=== PATIENT | female | born 1970 | race Caucasian/White ===

== ENCOUNTER 2017-07-12 13:25 | Inpatient (IN) | payer MEDICARE, OTHER ==
[~2017-07-12] VITALS: Ht 157.5 cm; Wt 46.0 kg
--- NOTE | ~2017-07-12 | CON ---
[place], [place] REPORT OF CONSULTATION NAME: CHARBEL NICOLE UNIT #: [id number] ROOM: [place] [address] DOCTOR: GISELE ALDANA MD BIRTHDATE: [birth year] DOS: 07/15/2017 CHIEF COMPLAINT: "I've been so depressed." HISTORY OF PRESENT ILLNESS: This is a 47-year-old female brought to the Emergency Room via EMS after an overdose of Vicodin. The patient reports a long history of depression and most recently an increased stress level. Prior to , her fiance suddenly . This necessitated her to find a new living situation immediately. She moved in with her daughter, but things there were very much filled with discord. The patient ended up having to give away her dogs and just felt horribly depressed with poor sleep and appetite. In fact, she had not slept for days prior to this admission. During a family argument, the patient stated "you all would be better off if I were , you want me don't you" and in the midst of having a significant migraine began taking Vicodin to help her sleep and stopped the migraine ultimately overdosing on it. She still endorses increased depression right now, but is hopeful that the meds will help her feel better. I discussed with her at length about going for help and she is in agreement with this. 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 MENTAL STATUS: The patient is alert and oriented to person, place and time. Mood does seem to be depressed with anxious overtones. She endorses multiple neurovegetative symptoms. There is no hypomania or marilee. There are no auditory or visual hallucinations. No delusions, no paranoia. Memory for the most part is intact. DIAGNOSIS: Major depression, recurrent, severe. PLAN: I agree with the starting of the Remeron, not only will this rapidly aid sleep but it is a good migraine prophylaxis. I will discontinue the Lexapro due to ineffectiveness and due to the fact that it is redundant with her Remeron. I do think an inpatient stay would be warranted given the fact that she has poor coping skills and a very poor support system and is in need of some type of alternative placement. GISELE ALDANA MD CM:CONSTR:REPORT OF CONSULTATION 1115 07/15/17 1249 interface
--- NOTE | ~2017-07-12 | EKG ---
[place], [place] ELECTROCARDIOGRAM REPORT NAME: CHARBEL NICOLE UNIT #: [id number] ROOM: [place] [address] DOCTOR: INDIO AZEVEDO,PEGGY BIRTHDATE: [birth year] DOS: 07/12/2017 TIME: 1406 hours. IMPRESSION: 1. Sinus rhythm. 2. Borderline left atrial enlargement. 3. Nonspecific intraventricular conduction delay. 4. Poor R-wave progression. 5. Baseline artifacts. PEGGY BORJAS MD CM:EKGRPT:ELECTROCARDIOGRAM REPORT [id number] PEGGY BORJAS MD
--- NOTE | ~2017-07-12 | CON ---
[place], [place] REPORT OF CONSULTATION NAME: CHARBEL NICOLE UNIT #: [id number] ROOM: [place] [address] DOCTOR: YULIANA LIND MD BIRTHDATE: [birth year] DOS: CHIEF COMPLAINT: "I took overdose." HISTORY OF PRESENT ILLNESS: The patient is 47-year-old, brought to the Emergency Department via EMS for overdose. [facility], they arrived at her home where patient was found unresponsive and unconscious. She was given Narcan and then she reported that she took Vicodin after getting into argument with her daughter in an attempt to kill herself. As per daughter, they had an argument and she went up to her room and when daughter went to check on her, she was unresponsive and was not breathing. Paramedics were called and then she was given IV Narcan and later she received Narcan in the Emergency Department as well and then transferred to ICU where I saw her this morning. The patient reports that she has been in psychiatric treatment for a couple of years for depression and then recently her fiance of heart attack and that has been a loss to her, then she had to move to her daughter and had an argument with and she thought that life is not worth living and took the overdose with the intent to harm herself, though this morning she states that she is happy that she is alive and endorses neurovegetative symptoms of depression with sadness, crying spells, anhedonia, hopelessness and she is still ambivalent about her safety. PAST MEDICAL HISTORY: She had a double lung transplant 20 years ago and status post gastric bypass surgery. MENTAL STATUS EXAMINATION: The patient is still drowsy, though could hold conversation, but would doze off frequently. Mood overwhelmed ____ depressed with blunted affect. No marilee or hypomania and no overt psychosis at present and she still cannot contract for safety. PLAN: She is currently being managed at ICU. Considering her serious attempt on her life and inability to contract for safety, also considering her history of depression, she will need an inpatient facility to stabilize her on meds. She was taking Lexapro, which we are going to restart at 10 mg daily and Vistaril 25 mg p.r.n. q. 6 hours. I did sign the pink slip as well in case it is needed. YULIANA LIND MD CM:CONSTR:REPORT OF CONSULTATION 0932 07/13/17 1350 interface
--- NOTE | ~2017-07-12 | CON ---
[place], [place] REPORT OF CONSULTATION NAME: CHARBEL NICOLE UNIT #: [id number] ROOM: [place] [address] DOCTOR: GISELE ALDANA MD BIRTHDATE: [birth year] DOS: 07/17/2017 SECONDARY PSYCHIATRIC CONSULTATION CHIEF COMPLAINT: "I really think I can go home." HISTORY OF PRESENT ILLNESS: This is a 47-year-old female who was admitted after an intentional overdose of Vicodin. She reports a long history of depression with increased stress including significant housing issues and family discord. The patient was admitted to ICU following this OD attempt. When I did evaluate her, I did start her on Remeron. Since that time, she has had several doses of the Remeron and is sleeping and eating better and is feeling much better. We were trying to get her placed into a psychiatric unit; however, she is on continuous O2, making this very difficult as most psychiatric units will not take somebody medically compromised. The patient has improved sufficiently where she is reporting she is not suicidal and she is voicing positive plans for the future. She reports improved sleep and appetite, better energy and she is much more lucid and engaging. DIAGNOSIS: Major depression, recurrent. PLAN: At this point, the most psychiatric units will keep A patient anywhere from 2-5 days. She has been in the hospital around this time and has been medicated successfully. I have suggested to her she consider the [facility] As an option. The IOP should provide transportation to and from the program. We will provide her added support and help her improve coping mechanisms. They also have a physician on staff who can monitor her medication. I do not see her as acutely suicidal or lethal at this point and feel that she can safely be discharged at this point. GISELE ALDANA MD CM:CONSTR:REPORT OF CONSULTATION 1014 07/17/17 1312 interface
[~2017-07-12 13:25] MED LIST: CELLCEPT500 M1 PO; LEXAPRO20 MG PO; NORCO 325 MG-51 TAB PO; PREDNISONE10 MG PO; PROGRAF5 MG PO; ZITHROMAX250 MG PO
[2017-07-12 13:35] VITALS: BP 101/56
[2017-07-12 13:57] LABS: BASO # 0.1 10*3/uL (0.0-0.1); BASO % 0.4 % (0.0-1.0); EOS # 0.4 10*3/uL (0.0-0.4); EOS % 3.1 % (1.0-4.0); HEMATOCRIT 34.8 % (37.0-47.0); HEMOGLOBIN 9.9 g/dl (12.0-16.0); LYMPH # 1.8 10*3/uL (1.3-4.4); LYMPH % 12.6 % (27.0-41.0); MEAN CELL VOLUME 96.4 fl (81.0-99.0); MEAN CORPUSCULAR HGB 27.4 pg (27.0-31.0); MEAN CORPUSCULAR HGB CONC 28.4 g/dl (33.0-37.0); MEAN PLATELET VOLUME 10.7 fl (9.6-12.3); MONO # 0.8 10*3/uL (0.1-1.0); MONO % 5.8 % (3.0-9.0); NEUT # 10.8 10*3/uL (2.3-7.9); NEUT % 77.3 % (47.0-73.0); PLATELET COUNT AUTOMATED 176 10*3/uL (130-400); RED BLOOD COUNT 3.61 10*6/uL (4.10-5.10); RED CELL DISTRI WIDTH 14.5 % (0-14.5); WHITE BLOOD COUNT 13.9 10*3/uL (4.8-10.8)
[2017-07-12 14:08] LABS: ACT PARTIAL THROMBO TIME 23.9 SECONDS (20.8-31.5); INTERNATIONAL NORM RATIO 1.1 (2.0-3.5)
[2017-07-12 14:12] LABS: ALKALINE PHOSPHATASE 71 U/L (45-117); BUN 24 mg/dl (7-24); CHLORIDE 108 mmol/L (98-107); CREATININE 1.21 mg/dL (0.55-1.02); POTASSIUM 4.6 mmol/L (3.5-5.1); SGOT/AST 13 IU/L (3-35); SGPT/ALT 9 U/L (12-78); SODIUM 138 mmol/L (136-145); TOTAL PROTEIN 5.8 gm/dL (6.4-8.2)
[2017-07-12 14:21] LABS: ACETAMINOPHEN (TYLENOL) 269.6 ug/ml (10-30); ETHYL ALCOHOL < 3.0 mg/dl (<3)
[2017-07-12 14:37] LABS: ABG HCO3 22.9 mmol/l (22-26); ABG O2 SATURATION 96.1 % (95-97); ARTERIAL BLOOD GAS PCO2 62.4 mmHg (35-45)
[2017-07-12 14:47] LABS: ABG BASE EXCESS -5.6 mmol/L (-2.0-2.0); ARTERIAL BLOOD GAS PH 7.182 (7.35-7.45)
[2017-07-12 15:21] LABS: BILIRUBIN NEGATIVE (NEGATIVE); BLOOD NEGATIVE (NEGATIVE); CLARITY CLEAR (CLEAR); COLOR YELLOW (YELLOW); GLUCOSE 1+ (NEGATIVE); KETONE NEGATIVE (NEGATIVE); LEUKO ESTERASE NEGATIVE (NEGATIVE); NITRITE NEGATIVE (NEGATIVE); PH 5.5 (5.0-9.0); SPECIFIC GRAVITY 1.025 (1.005-1.030); UROBILINOGEN 0.2 E.U./dl (0.2-1.0)
[2017-07-12 15:30] LABS: URINE AMPHETAMINES < 1000 (1000ng/ml); URINE BARBITURATES < 200 (200ng/ml); URINE BENZODIAZEPINES > 200 (200ng/ml); URINE CANNABINOIDS (THC) < 50 (50ng/ml); URINE COCAINE < 300 (300ng/ml); URINE METHADONE < 300 (300ng/ml); URINE OPIATES > 300 (300ng/ml)
[2017-07-12 15:40] LABS: MUCOUS TRACE; RBC 0-2 rbc/hpf (0-2)
[2017-07-12 15:48] LABS: URINE PHENCYCLIDINE < 25 (25ng/ml)
[2017-07-12 15:50] VITALS: BP 125/59
[2017-07-12 16:00] VITALS: BP 107/60; BP 125/59
[2017-07-12] MEDS ORDERED: REXULTI1 MG PO (16:57)
[2017-07-12] MEDS ORDERED: PROGRAF5 MG PO ×2 (16:59→17:00)
[2017-07-12] MEDS ORDERED: NORCO 7.5-3251 EACH PO (17:00)
[2017-07-12] MEDS ORDERED: AMITRIPTYLINE10 MG PO (17:02)
[2017-07-12] MEDS ORDERED: REMERON45 M1 PO (17:03)
[2017-07-12] MEDS ORDERED: NEURONTIN300 MG PO (17:04)
[2017-07-12] MEDS ORDERED: KLONOPIN1 M1 PO (17:04)
[2017-07-12] MEDS ORDERED: PRILOSEC20 M1 PO (17:05)
[2017-07-12] MEDS ORDERED: VALIUM5 MG PO (17:06)
[2017-07-12] MEDS ORDERED: ZOFRAN ODT4 MG SL (17:07)
[2017-07-12 20:00] VITALS: BP 121/62
[2017-07-13] VITALS: BP 131/81
[2017-07-13 04:00] VITALS: BP 159/85
[2017-07-13 05:55] LABS: BASO % 0.2 % (0.0-1.0); EOS % 0.2 % (1.0-4.0); HEMATOCRIT 34.6 % (37.0-47.0); HEMOGLOBIN 9.8 g/dl (12.0-16.0); LYMPH % 12.6 % (27.0-41.0); MEAN CELL VOLUME 95.1 fl (81.0-99.0); MEAN CORPUSCULAR HGB 26.9 pg (27.0-31.0); MEAN CORPUSCULAR HGB CONC 28.3 g/dl (33.0-37.0); MONO # 0.3 10*3/uL (0.1-1.0); MONO % 3.7 % (3.0-9.0); NEUT # 6.7 10*3/uL (2.3-7.9); NEUT % 82.3 % (47.0-73.0); RED BLOOD COUNT 3.64 10*6/uL (4.10-5.10); RED CELL DISTRI WIDTH 14.3 % (0-14.5); WHITE BLOOD COUNT 8.2 10*3/uL (4.8-10.8)
[2017-07-13 06:15] LABS: ACT PARTIAL THROMBO TIME 26.7 SECONDS (20.8-31.5); INTERNATIONAL NORM RATIO 1.2 (2.0-3.5)
[2017-07-13 06:16] LABS: ALBUMIN 2.9 gm/dl (3.1-4.5); BUN 20 mg/dl (7-24); CHLORIDE 105 mmol/L (98-107); CHOLESTEROL 148 mg/dL (<200); CREATININE 0.97 mg/dL (0.55-1.02); PHOSPHOROUS 4.2 mg/dL (2.5-4.9); POTASSIUM 4.2 mmol/L (3.5-5.1); SGOT/AST 9 IU/L (3-35); SGPT/ALT 13 U/L (12-78); SODIUM 139 mmol/L (136-145); TOTAL PROTEIN 5.8 gm/dL (6.4-8.2); TRIGLYCERIDES 137 mg/dl (<150); VLDL CHOLESTEROL 27 mg/dL (6-40)
[2017-07-13 06:17] LABS: ALKALINE PHOSPHATASE 69 U/L (45-117); BILIRUBIN, DIRECT < 0.1 mg/dL (0.0-0.2); SGOT/AST 7 IU/L (3-35); SGPT/ALT 10 U/L (12-78); TOTAL PROTEIN 5.9 gm/dL (6.4-8.2)
[2017-07-13 06:23] LABS: ALKALINE PHOSPHATASE 70 U/L (45-117); HDL CHOLESTEROL 44 mg/dl (40-60); LDL CHOLESTEROL 77 mg/dL (9-159); THYROID STIM HORMONE (HS) 0.377 uIU/ml (0.358-4.75)
[2017-07-13 06:43] LABS: PLATELET COUNT AUTOMATED 122 10*3/uL (130-400)
[2017-07-13 08:00] VITALS: BP 150/70
[2017-07-13 08:24] LABS: VITAMIN D, 25-HYDROXY 18.4 ng/mL (30-100)
[2017-07-13 12:00] VITALS: BP 137/75
[2017-07-13 16:00] VITALS: BP 139/81
[2017-07-13 20:00] VITALS: BP 147/95
[2017-07-14] VITALS: BP 132/88
[2017-07-14 04:00] VITALS: BP 132/80
[2017-07-14 05:15] LABS: BASO % 0.5 % (0.0-1.0); EOS % 0.2 % (1.0-4.0); HEMATOCRIT 31.1 % (37.0-47.0); LYMPH # 1.3 10*3/uL (1.3-4.4); LYMPH % 32.8 % (27.0-41.0); MEAN CELL VOLUME 93.4 fl (81.0-99.0); MEAN CORPUSCULAR HGB CONC 28.9 g/dl (33.0-37.0); MEAN PLATELET VOLUME 11.1 fl (9.6-12.3); MONO # 0.3 10*3/uL (0.1-1.0); MONO % 6.7 % (3.0-9.0); NEUT # 2.4 10*3/uL (2.3-7.9); NEUT % 59.3 % (47.0-73.0); PLATELET COUNT AUTOMATED 112 10*3/uL (130-400); RED BLOOD COUNT 3.33 10*6/uL (4.10-5.10); RED CELL DISTRI WIDTH 14.5 % (0-14.5); WHITE BLOOD COUNT 4.1 10*3/uL (4.8-10.8)
[2017-07-14 05:26] LABS: ACT PARTIAL THROMBO TIME 25.8 SECONDS (20.8-31.5); INTERNATIONAL NORM RATIO 1.1 (2.0-3.5)
[2017-07-14 05:33] LABS: ALBUMIN 3.1 gm/dl (3.1-4.5); ALKALINE PHOSPHATASE 63 U/L (45-117); BUN 13 mg/dl (7-24); CHLORIDE 106 mmol/L (98-107); CREATININE 0.78 mg/dL (0.55-1.02); PHOSPHOROUS 2.6 mg/dL (2.5-4.9); POTASSIUM 4.3 mmol/L (3.5-5.1); SGOT/AST 4 IU/L (3-35); SGPT/ALT 9 U/L (12-78); SODIUM 141 mmol/L (136-145); TOTAL PROTEIN 5.7 gm/dL (6.4-8.2)
[2017-07-14 08:00] VITALS: BP 130/80
[2017-07-14 12:00] VITALS: BP 150/80
[2017-07-14 16:00] VITALS: BP 141/97
[2017-07-14 20:00] VITALS: BP 138/84
[2017-07-15] VITALS: BP 149/83
[2017-07-15 04:00] VITALS: BP 144/84
[2017-07-15 08:00] VITALS: BP 134/85
[2017-07-15 08:36] LABS: BASO % 0.6 % (0.0-1.0); EOS # 0.4 10*3/uL (0.0-0.4); EOS % 6.6 % (1.0-4.0); HEMATOCRIT 35.5 % (37.0-47.0); HEMOGLOBIN 10.7 g/dl (12.0-16.0); LYMPH # 1.7 10*3/uL (1.3-4.4); LYMPH % 26.1 % (27.0-41.0); MEAN CELL VOLUME 92.4 fl (81.0-99.0); MEAN CORPUSCULAR HGB 27.9 pg (27.0-31.0); MEAN CORPUSCULAR HGB CONC 30.1 g/dl (33.0-37.0); MEAN PLATELET VOLUME 11.8 fl (9.6-12.3); MONO # 0.5 10*3/uL (0.1-1.0); MONO % 7.5 % (3.0-9.0); NEUT # 3.8 10*3/uL (2.3-7.9); NEUT % 58.9 % (47.0-73.0); PLATELET COUNT AUTOMATED 127 10*3/uL (130-400); RED BLOOD COUNT 3.84 10*6/uL (4.10-5.10); RED CELL DISTRI WIDTH 14.7 % (0-14.5); WHITE BLOOD COUNT 6.5 10*3/uL (4.8-10.8)
[2017-07-15 08:53] LABS: ALBUMIN 3.1 gm/dl (3.1-4.5); ALKALINE PHOSPHATASE 65 U/L (45-117); BUN 18 mg/dl (7-24); CHLORIDE 108 mmol/L (98-107); CREATININE 1.05 mg/dL (0.55-1.02); PHOSPHOROUS 3.1 mg/dL (2.5-4.9); POTASSIUM 3.9 mmol/L (3.5-5.1); SGPT/ALT 11 U/L (12-78); SODIUM 144 mmol/L (136-145); TOTAL PROTEIN 5.9 gm/dL (6.4-8.2)
[2017-07-15 08:54] LABS: SGOT/AST < 3 IU/L (3-35)
[2017-07-15 12:00] VITALS: BP 144/88
[2017-07-15 16:00] VITALS: BP 134/60
[2017-07-15 20:00] VITALS: BP 136/86
[2017-07-16] VITALS: BP 144/78
[2017-07-16 04:00] VITALS: BP 130/80
[2017-07-16 08:00] VITALS: BP 154/90
[2017-07-16 12:00] VITALS: BP 144/93
[2017-07-16 16:00] VITALS: BP 152/94
[2017-07-16 20:00] VITALS: BP 154/92
[2017-07-17] VITALS: BP 154/92
[2017-07-17 04:00] VITALS: BP 128/85
[2017-07-17 08:00] VITALS: BP 145/79
[2017-07-17 12:00] VITALS: BP 136/91
[2017-07-17] MEDS ORDERED: VITAMIN D-32000 UNI1 PO (13:44)
[2017-07-17 16:00] VITALS: BP 124/84
[2017-07-17 20:00] VITALS: BP 129/84
[2017-07-18] VITALS: BP 132/65
[2017-07-18 06:27] LABS: BASO % 0.3 % (0.0-1.0); EOS # 0.4 10*3/uL (0.0-0.4); EOS % 5.2 % (1.0-4.0); HEMATOCRIT 32.7 % (37.0-47.0); HEMOGLOBIN 9.5 g/dl (12.0-16.0); LYMPH # 1.4 10*3/uL (1.3-4.4); LYMPH % 17.2 % (27.0-41.0); MEAN CELL VOLUME 93.2 fl (81.0-99.0); MEAN CORPUSCULAR HGB 27.1 pg (27.0-31.0); MEAN CORPUSCULAR HGB CONC 29.1 g/dl (33.0-37.0); MEAN PLATELET VOLUME 11.4 fl (9.6-12.3); MONO # 0.6 10*3/uL (0.1-1.0); MONO % 7.7 % (3.0-9.0); NEUT # 5.5 10*3/uL (2.3-7.9); NEUT % 69.2 % (47.0-73.0); PLATELET COUNT AUTOMATED 140 10*3/uL (130-400); RED BLOOD COUNT 3.51 10*6/uL (4.10-5.10); RED CELL DISTRI WIDTH 14.7 % (0-14.5); WHITE BLOOD COUNT 7.9 10*3/uL (4.8-10.8)
[2017-07-18 06:47] LABS: CREATININE 0.87 mg/dL (0.55-1.02)
[2017-07-18 08:00] VITALS: BP 144/82
[2017-07-18 12:00] VITALS: BP 122/80
== END 2017-07-18 16:12 | disposition home or self-care (01) | DRG 917 ==
LOC: ED 13:25 → ICCU 14:08 → 4E 14:08 → EDHOLD 14:08 → ICCU 14:16 → 4E 07-17 17:56
PROVIDERS: Emergency Medicine; Internal Medicine; Internal Medicine Nephrology
PROC: 5A09357 Assistance with Respiratory Ventilation, Less than 24 Consecutive Hours, Continuous Positive Airway Pressure (ICD-10-PCS; principal; 2017-07-12)
DX: T40.602A Poisoning by unspecified narcotics, intentional self-harm, initial encounter (principal); J96.02 Acute respiratory failure with hypercapnia; G93.41 Metabolic encephalopathy; I47.2 Ventricular tachycardia; D84.9 Immunodeficiency, unspecified; E44.0 Moderate protein-calorie malnutrition; Z94.2 Lung transplant status; F33.2 Major depressive disorder, recurrent severe without psychotic features; N18.3 Chronic kidney disease, stage 3 (moderate); R65.10 Systemic inflammatory response syndrome (SIRS) of non-infectious origin without acute organ dysfunction; R45.851 Suicidal ideations; Z68.1 Body mass index [BMI] 19.9 or less, adult; D69.6 Thrombocytopenia, unspecified; E87.8 Other disorders of electrolyte and fluid balance, not elsewhere classified; E11.65 Type 2 diabetes mellitus with hyperglycemia; E83.42 Hypomagnesemia; E11.22 Type 2 diabetes mellitus with diabetic chronic kidney disease; T39.1X2A Poisoning by 4-Aminophenol derivatives, intentional self-harm, initial encounter; F41.9 Anxiety disorder, unspecified; D64.9 Anemia, unspecified; Z86.69 Personal history of other diseases of the nervous system and sense organs; Z90.49 Acquired absence of other specified parts of digestive tract; Z88.2 Allergy status to sulfonamides; Z79.899 Other long term (current) drug therapy; Z98.84 Bariatric surgery status; Z82.3 Family history of stroke; Z82.49 Family history of ischemic heart disease and other diseases of the circulatory system; Y92.89 Other specified places as the place of occurrence of the external cause; Z88.5 Allergy status to narcotic agent

== ENCOUNTER 2017-09-25 06:01 | Emergency (ER) | payer MEDICARE, OTHER ==
[~2017-09-25] VITALS: Ht 154.9 cm; Wt 40.8 kg
[~2017-09-25 06:01] MED LIST changes: +AMITRIPTYLINE10 MG PO; +KLONOPIN1 M1 PO; +NEURONTIN300 MG PO; +NORCO 7.5-3251 EACH PO; +PRILOSEC20 M1 PO; +REMERON45 M1 PO; +REXULTI1 MG PO; +VALIUM5 MG PO; +VITAMIN D-32000 UNI1 PO; +ZOFRAN ODT4 MG SL
[2017-09-25 06:37] LABS: BASO % 0.3 % (0.0-1.0); EOS # 0.3 10*3/uL (0.0-0.4); EOS % 2.6 % (1.0-4.0); HEMATOCRIT 35.7 % (37.0-47.0); HEMOGLOBIN 10.4 g/dl (12.0-16.0); LYMPH # 1.1 10*3/uL (1.3-4.4); LYMPH % 9.9 % (27.0-41.0); MEAN CELL VOLUME 96.2 fl (81.0-99.0); MEAN CORPUSCULAR HGB CONC 29.1 g/dl (33.0-37.0); MEAN PLATELET VOLUME 9.8 fl (9.6-12.3); MONO # 0.7 10*3/uL (0.1-1.0); MONO % 6.4 % (3.0-9.0); NEUT # 8.7 10*3/uL (2.3-7.9); NEUT % 80.3 % (47.0-73.0); PLATELET COUNT AUTOMATED 172 10*3/uL (130-400); RED BLOOD COUNT 3.71 10*6/uL (4.10-5.10); RED CELL DISTRI WIDTH 15.8 % (0-14.5); WHITE BLOOD COUNT 10.8 10*3/uL (4.8-10.8)
[2017-09-25 06:53] LABS: ALKALINE PHOSPHATASE 103 U/L (45-117); BUN 18 mg/dl (7-24); CHLORIDE 106 mmol/L (98-107); CREATININE 0.87 mg/dL (0.55-1.02); SGOT/AST 6 IU/L (3-35); SGPT/ALT 9 U/L (12-78); SODIUM 141 mmol/L (136-145); TOTAL PROTEIN 6.6 gm/dL (6.4-8.2)
[2017-09-25 06:55] LABS: TROPONIN I < 0.015 ng/ml (<0.045)
[2017-09-25 07:08] LABS: ACT PARTIAL THROMBO TIME 24.8 SECONDS (20.8-31.5); INTERNATIONAL NORM RATIO 0.9 (2.0-3.5)
== END 2017-09-25 09:13 | disposition short-term general hospital (02) ==
LOC: ED 06:01
PROVIDERS: Student in an Organized Health Care Education/Training Program
DX: E87.70 Fluid overload, unspecified (principal); N18.3 Chronic kidney disease, stage 3 (moderate); E11.9 Type 2 diabetes mellitus without complications; Z94.2 Lung transplant status; Z88.2 Allergy status to sulfonamides; Z88.6 Allergy status to analgesic agent; Z79.899 Other long term (current) drug therapy

== ENCOUNTER 2017-11-03 00:24 | Inpatient (IN) | payer MEDICARE, OTHER ==
[~2017-11-03] VITALS: Ht 157.4 cm; Wt 49.5 kg
[2017-11-03] VITALS (8 sets, daily range): BP systolic 108–163; BP diastolic 74–88
--- NOTE | ~2017-11-03 | CON ---
[place], [place] REPORT OF CONSULTATION NAME: CHARBEL NICOLE UNIT #: [id number] ROOM: [place] [address] DOCTOR: MARIAMA BURTON MD BIRTHDATE: [birth year] DOS: 11/03/2017 PULMONARY CONSULTATION EVALUATION AND MANAGEMENT CONSULTATION REQUESTED BY: Hospitalist Service. REASON FOR CONSULTATION: Change in mental status. The patient in the Intensive Care Unit. HISTORY OF PRESENT ILLNESS: This is a 47-year-old white female patient who has been noted history of bilateral lung transplant for this patient at the age of, I believe 16-20 years. The lung transplantation done for the medical management of primary pulmonary hypertension, successfully. The patient has been noted immunosuppressive therapy. She presented to the Emergency Room. The patient was brought by the ambulance. The patient has been reported increased confusional status at home. The patient has been noted not acting right ankle not remember or recall any event. She has been assessed in emergency room. The patient was admitted to the hospital for further medical management. She has been noted awake and alert this morning. She has arterial blood gases done for the patient, which shows hypercarbia with a decreased pH. She was ordered BiPAP. The patient to be used, but it was not done as the patient was noted improvement in the respiratory symptom progressively. The arterial blood gas, which were repeated later for the patient was also assessed. She does note symptoms of hemoptysis. REVIEW OF SYSTEMS: CONSTITUTIONAL: Fatigue, reported as symptoms, fever or chills. EYES: Denies any burning, redness, or tenderness. EARS, NOSE, THROAT SYMPTOMS: Denies sore throat, hoarseness, otalgia, postnasal drainage or epistaxis. CARDIOVASCULAR: No angina pain, edema or pain in lower extremity. GASTROINTESTINAL: Dysphagia, nausea, vomiting, diarrhea, abdominal pain, hematemesis, melena, or hematochezia. SKIN: Denies any abnormal lesions or rashes. GENITOURINARY SYMPTOMS: Dysuria, suprapubic pain, hematuria or flank pain. CENTRAL NERVOUS SYSTEM: No dizziness, headache, diplopia, syncopal episode, tingling sensation this time. Change in mental status for the patient, which has been noted previously was resolved. There was no history of past seizures. MUSCULOSKELETAL: No acute joint pain, redness or tenderness of any joints. Remaining systems were reviewed. They were noted all negative. PAST MEDICAL HISTORY: 1. Noted with history of bilateral lung transplant that was done in 1995. The patient with primary pulmonary hypertension. 2. History of general anxiety and depression. 3. Chronic immunosuppression for this patient for the post-lung transplant status. 4. History of anxiety and depression. 5. Use of dapsone for this patient taken by the patient as 50 mg 3 times a [place], [place] REPORT OF CONSULTATION NAME: CHARBEL NICOLE UNIT #: [id number] ROOM: [place] [address] DOCTOR: MERYL HERNANDEZ MD,MARIAMA BIRTHDATE: [birth year] week. PAST SURGICAL HISTORY: 1. Appendectomy. 2. Cholecystectomy. 3. Gastric bypass. 4. Lung transplant, 1995 double lung transplant, [facility]. SOCIAL HISTORY: The patient lives at home. Does not have any history of alcohol use, illicit, or tobacco use. FAMILY HISTORY: The patient reported for CVA and hypertension. HOME MEDICATIONS: 1. Noted, use of prednisone 10 mg every other day. 2. Diazepam 5 mg p.o. t.i.d. 3. CellCept 500 mg p.o. b.i.d. 4. Lexapro 20 mg daily. 5. ____ 3 mg daily, recently changed from 2 mg to 3 mg. 6. Prograf 4 mg in the day and 3 mg at bedtime. 7. Amitriptyline 10 mg at bedtime. 8. Remeron 40 mg daily. 9. Gabapentin 300 mg daily. 10. Klonopin 1 mg p.o. b.i.d. 11. Prilosec 20 mg p.o. b.i.d. 12. Zofran p.r.n. 13. Wellbutrin SR 150 mg b.i.d. 14. Zanaflex 4 mg p.o. t.i.d. DRUG ALLERGY HISTORY: ALLERGIC TO 1. SULFA DRUGS. 2. MORPHINE. PHYSICAL EXAMINATION: GENERAL: The patient is a 47 years of white female currently noted to be awake and alert without any acute distress this morning noted fully awake, alert, oriented this morning of assessment after hospitalization in the Intensive Care Unit assessment. VITAL SIGNS: Height of 5 feet 2 inches, weight of 109 pounds, BMI 19.9. Normal temperature, respiratory rate 18-23, heart rate 83-68, blood pressure 160-88, 144/88. Pulse oxygen saturation on 2 liters is 95% saturation. HEENT: Head was atraumatic. Eyes nonicterus. NECK: Supple. CARDIOVASCULAR: S1, S2 audible. LUNGS:. The patient was noted without any wheezing or crackles. Lungs noted to be clear bilaterally. ABDOMEN: Soft, nontender. EXTREMITIES: The patient was noted without any acute edema. Chronic loss of muscle mass. SKIN: ____ visible skin, no lesions or rashes. [place], [place] REPORT OF CONSULTATION NAME: CHARBEL NICOLE UNIT #: [id number] ROOM: [place] [address] DOCTOR: MERYL HERNANDEZ MD,MARIAMA BIRTHDATE: [birth year] MUSCULOSKELETAL SYMPTOM: Without any acute deformities. CENTRAL NERVOUS SYSTEM: Cranial nerves 2-12 intact. No focal neurologic deficit. LABORATORY DATA: CT scan of the head, which was done on admission this morning was noted, no acute abnormal finding. CBC: Hemoglobin 8.1 and hematocrit 28.8, platelet count was normal. Lactic acid 1.0. PT/PTT of patient that was done on this admission was normal. Salicylate level less than 1.07. The CMP of the patient this morning, BUN 25, creatinine 1.20, glucose 196. Total protein 6.3. Arterial blood gas pH of 7.32, pCO2 of 55, pO2 61. The arterial blood gas of the patient that was done this morning on 3 liters, pH of 7.35, pCO2 of 52, and pO2 109. BMP this morning repeated again normal BUN and creatinine. Glucose 151. Urine drug screen was also done for this patient with four illicit drugs was noted all negative testing. IMPRESSION: 1. The patient was noted with mental status changes. The patient with hypercarbia, most likely related to the hypoventilation for this patient as a result of polypharmacy medication, which was taken for the anxiety and depression. The patient was on many medications including some duplicated medication noted as use of benzodiazepines as Valium and Klonopin as well would be the likely cause of the current change in mental status. 2. Chronic hypercarbia, history of lung transplant without any known other pulmonary disease. 3. History of primary pulmonary hypertension, which has been treated for lung transplant, as per patient, 1995. 4. Chronic immunosuppressive therapy without any evidence of infection or sepsis at this time. 5. Mild acute kidney injury secondary to most likely a decreased oral intake, intravascular volume depletion, resolved. PLAN OF TREATMENT: At this time, the patient was noted with saturation of the hypoxia and hypoxemia, which are noted relative remission, pO2 of 61.9 noted at that time with 2 liter nasal cannula, currently oxygen saturation noted normal as the pO2 improve her on 3 L of 109. At this time, the monitoring of the hypercarbia could be done as an outpatient. The patient was advised to be followed up by her transplant doctor for further discussion. Avoid the duplication of the medication, also minimize the medication use for anxiety and depression to prevent the change in mental status in future. The chest x-ray was also done, which was reviewed does not show any acute cardiopulmonary disease. Increased pulmonary venous congestion marking was noted. Any pulmonary problem, patient need to be addressed by the transplant physician at [facility]. From the pulmonary standpoint, whenever desired for the patient, the patient is stable for other medical condition including psychiatric assessment and evaluation. She could be considered for home discharge afterwards as necessary. Thanks for allowing me to participate in care of this patient. [place], [place] REPORT OF CONSULTATION NAME: CHARBEL NICOLE UNIT #: [id number] ROOM: [place] [address] DOCTOR: MARIAMA BURTON MD BIRTHDATE: [birth year] MARIAMA SHETH MD CM:CONSTR:REPORT OF CONSULTATION 1353 11/04/17 0304 interface
--- NOTE | ~2017-11-03 | CON ---
[place], [place] REPORT OF CONSULTATION NAME: CHARBEL NICOLE UNIT #: [id number] ROOM: [place] [address] DOCTOR: MARIAMA BURTON MD BIRTHDATE: [birth year] DOS: PULMONARY CONSULTATION, EVALUATION, AND MANAGEMENT CONSULTATION REQUESTED BY: Hospitalist services. REASON FOR CONSULTATION: 1. Assess the patient for any respiratory problem as well. 2. Mental status changes. HISTORY OF PRESENT ILLNESS: A 47-year-old female patient, who has been admitted to the hospital 2 days ago for short term. The patient presented to the hospital, noted with hypercarbic respiratory failure, change in mental status and confusional status. The patient has been noted with gradual resolution of the symptoms progressively and was discharged home. She was noted with multiple medications used for the anxiety and depression as well. She was noted stable at the time of the discharge without any ongoing acute symptoms. The patient was seen, but the patient returned back to the Emergency Room and readmitted to the hospital on 11/04/2017, presented to the Emergency Room on later part of the evening of 11/03/2017. The patient brought to the hospital by his daughter. The patient has been noted with changes in the mental status. The patient has been noted with confusional status, was not noted oriented to the time and place. She has been currently admitted to the hospital again for assessment of current symptoms. This morning when the patient was seen, she was appear to be awake, alert, and oriented to the time and place this morning on 11/05/2017 at the time of the assessment. She denies any symptoms of coughing or sputum expectoration. Denies symptoms of acute shortness of breath. Denies symptoms of hemoptysis. REVIEW OF SYSTEMS: CONSTITUTIONAL: Denies symptoms of fever or chills. Denies any fatigue or tiredness. EYES: Denies any burning, redness, tenderness, or diplopia. EARS, NOSE, AND THROAT SYMPTOMS: Denies sore throat, hoarseness, otalgia, postnasal drainage, or sinus pain. CARDIOVASCULAR: Denies anginal pain, edema, pain of the lower extremities, or palpitation symptoms. GASTROINTESTINAL: Denies dysphagia, nausea, vomiting, diarrhea, abdominal pain, hematemesis, melena, or hematochezia. SKIN: Denies any history of abnormal lesions or rashes. MUSCULOSKELETAL: Denies any acute joint pain, redness, tenderness, swelling, or deformities. CENTRAL NERVOUS SYSTEM: The patient was not noted any symptoms of seizure or tingling sensation of the extremities. Remaining systems were reviewed and they were noted all negative. PAST MEDICAL HISTORY: Please refer to my consultation, which was done on 11/03/2017. Past medical history, past surgical history, social history, and family history are noted, reviewed, and unchanged since that consultation. [place], [place] REPORT OF CONSULTATION NAME: CHARBEL NCIOLE UNIT #: [id number] ROOM: [place] [address] DOCTOR: MERYL HERNANDEZ MD,MARIAMA BIRTHDATE: [birth year] HOME MEDICATIONS: Reported on admission was noted with the use of 1. Ventolin HFA. 2. Vitamin C. 3. Atovaquone 750 mg suspension every day for pneumocystis prophylaxis, chronic immunosuppression. 4. Vitamin D. 5. Klonopin. 6. Lexapro. 7. CellCept 500 mg p.o. b.i.d. 8. Prednisone 10 mg daily. 9. Omeprazole 20 mg daily. 10. ____ 3 mg p.o. daily. 11. Prograf 5 mg p.o. b.i.d. 12. Zofran p.r.n. use. DRUG ALLERGIES: Noted allergies: 1. MORPHINE. 2. SULFA DRUGS. PHYSICAL EXAMINATION: GENERAL: This is a 47-year-old female, who has been currently resting comfortably, sitting on the bed without any acute distress at this time of assessment this morning. Height was noted as 5 feet 1 inch, weight of 102 pounds, and BMI 19.3. VITAL SIGNS: Temperature was noted normal since admission, respiratory rate recorded as 17-20, heart rate 105-91, blood pressure 150/90-140/90, pulse oxygen saturation on 2 liters nasal cannula was noted as 97% saturation. The patient was placed on the BiPAP previously, which has not been used in the last 24 hours, saturating ____ on 25% oxygen. HEENT: Examination shows head was atraumatic. Eye nonicterus. NECK: Supple. Oral mucosa moist. CARDIOVASCULAR: S1, S2 is audible. LUNGS: The patient was noted without any wheezing or crackles. Itcv-ip-bepzdocu decreased breath sounds noted in the lungs bilaterally. ABDOMEN: Soft, nontender. Bowel sounds present. EXTREMITIES: Do not show any edema, clubbing, or cyanosis. VISIBLE SKIN: No lesions or rashes. MUSCULOSKELETAL SYMPTOMS: Without any acute deformities. CENTRAL NERVOUS SYSTEM: Cranial nerves 2-12 intact. No focal deficits. LABORATORY DATA: Blood culture on previous admission of 11/03/2017 showed no bacterial growth. The BMP of the patient on 11/05/2017 noted BUN 24 and creatinine 1.24. This morning labs, CBC of the patient, WBC count 4.6, hemoglobin 7.8, hematocrit 27.1, and platelet count 153,000. The PT and PTT are noted yesterday as normal. CBC yesterday, WBC count 4.3, hemoglobin 8.3, hematocrit 29.4, and platelet count 154,000. CMP of the patient, BUN of 20, creatinine 1.09, and glucose 122 on admission. The LFTs were normal except albumin 3.0. The arterial blood gas on 25% oxygen with the BiPAP, pH 7.40, pCO2 of 45, pO2 70. BNP for the patient was noted as mildly elevated at 1,031 with [place], [place] REPORT OF CONSULTATION NAME: CHARBEL NICOLE UNIT #: [id number] ROOM: [place] [address] DOCTOR: CORA BURTON MDM BIRTHDATE: [birth year] normal troponin. Urine drug screen was noted negative. CT scan of the head was repeated on 11/04/2017 was noted without any acute intracranial abnormality. The chest x-ray does not show any acute abnormalities, mild hyperinflation. CT scan of the chest was done without contrast that was personally reviewed shows evidence of bronchiectasis, which are present in the mid and lower portions of the lung bilaterally without any discrete pulmonary nodules and infiltration. IMPRESSION: 1. The patient who has been currently admitted to the hospital with mental status changes still noted, multiple medications for the general anxiety and depression also noted, chronic immunosuppression, bilateral lung transplant that occurred for this patient in 1995 in [facility]. 2. No history of past tobacco use. Current change in mental status, etiology remains unclear to me. Any occult infection, sepsis cannot be excluded completely. At this time, the patient does not show any signs of active at least bacterial infection, leukopenia resulting either immunosuppression, viral etiology to be considered. PLAN OF MANAGEMENT: The patient will be recommended about the psychiatric evaluation to adjust the medications, minimize the psychiatric medications that potentially could resulting in mental status changes. She will be ordered the viral assessment with the nasopharyngeal washing for the influenza infection as well as other respiratory virus panel available in this hospital. Monitor respiratory symptoms closely at the present time. Bronchodilators p.r.n. use. Other supportive therapy, plan of management to be continued. Usual treatment. Monitor any other culture results as well. Obtain the drug level of the CellCept as well as Prograf to document adequacy of the immunosuppression for post-lung transplant immunosuppression use. The patient will be strongly recommended about assessment in the [facility] for the development of current bronchiectasis in the transplanted lung that was noted. Thanks for allowing me to participate in the care of this patient. MARIAMA SHETH MD CM:CONSTR:REPORT OF CONSULTATION 1416 11/06/17 0348 interface
--- NOTE | ~2017-11-03 | EKG ---
[place], [place] ELECTROCARDIOGRAM REPORT NAME: CHARBEL NICOLE UNIT #: [id number] ROOM: [place] [address] DOCTOR: MERYL HERNANDEZ MD,MARIAMA BIRTHDATE: [birth year] DOS: 11/03/2017 TIME: 1:00 a.m. INTERPRETATION: Normal sinus rhythm noted. Heart rate 61 beats per minute. Poor R-wave progression was noted. Rule out acute myocardial injury. MARIAMA SHETH MD CM:EKGRPT:ELECTROCARDIOGRAM REPORT 1526 1624 MARIAMA HERNANDEZ MD
[~2017-11-03 00:24] MED LIST changes: -AMITRIPTYLINE10 MG PO; +AMITRIPTYLINE50 MG PO
[2017-11-03 01:19] LABS: BASO % 0.4 % (0.0-1.0); EOS # 0.1 10*3/uL (0.0-0.4); EOS % 2.9 % (1.0-4.0); HEMATOCRIT 28.8 % (37.0-47.0); HEMOGLOBIN 8.1 g/dl (12.0-16.0); LYMPH # 1.2 10*3/uL (1.3-4.4); LYMPH % 24.2 % (27.0-41.0); MEAN CELL VOLUME 90.6 fl (81.0-99.0); MEAN CORPUSCULAR HGB 25.5 pg (27.0-31.0); MEAN CORPUSCULAR HGB CONC 28.1 g/dl (33.0-37.0); MEAN PLATELET VOLUME 10.8 fl (9.6-12.3); MONO # 0.2 10*3/uL (0.1-1.0); MONO % 4.8 % (3.0-9.0); NEUT # 3.3 10*3/uL (2.3-7.9); NEUT % 67.5 % (47.0-73.0); PLATELET COUNT AUTOMATED 151 10*3/uL (130-400); RED BLOOD COUNT 3.18 10*6/uL (4.10-5.10); RED CELL DISTRI WIDTH 15.5 % (0-14.5); WHITE BLOOD COUNT 4.8 10*3/uL (4.8-10.8)
[2017-11-03 01:29] LABS: ACT PARTIAL THROMBO TIME 25.1 SECONDS (20.8-31.5); INTERNATIONAL NORM RATIO 1.1 (2.0-3.5)
[2017-11-03 01:36] LABS: ACETAMINOPHEN (TYLENOL) < 2.0 ug/ml (10-30); ALBUMIN 3.1 gm/dl (3.1-4.5); ALKALINE PHOSPHATASE 105 U/L (45-117); BUN 25 mg/dl (7-24); CHLORIDE 104 mmol/L (98-107); ETHYL ALCOHOL < 3.0 mg/dl (<3); LIPASE 51 U/L (73-393); POTASSIUM 4.3 mmol/L (3.5-5.1); SGOT/AST 11 IU/L (3-35); SGPT/ALT 16 U/L (12-78); SODIUM 140 mmol/L (136-145); TOTAL PROTEIN 6.3 gm/dL (6.4-8.2); TROPONIN I < 0.015 ng/ml (<0.045)
[2017-11-03 01:54] LABS: ABG HCO3 28.1 mmol/l (22-26); ABG O2 SATURATION 90.9 % (95-97); ARTERIAL BLOOD GAS PCO2 55.2 mmHg (35-45); ARTERIAL BLOOD GAS PH 7.325 (7.35-7.45); ARTERIAL BLOOD GAS PO2 61.9 mmHg (80-90)
[2017-11-03 02:06] LABS: BILIRUBIN NEGATIVE (NEGATIVE); BLOOD NEGATIVE (NEGATIVE); CLARITY CLEAR (CLEAR); COLOR YELLOW (YELLOW); GLUCOSE NEGATIVE (NEGATIVE); KETONE NEGATIVE (NEGATIVE); LEUKO ESTERASE NEGATIVE (NEGATIVE); NITRITE NEGATIVE (NEGATIVE); SPECIFIC GRAVITY 1.025 (1.005-1.030); UROBILINOGEN 0.2 E.U./dl (0.2-1.0)
[2017-11-03 02:12] LABS: WBC 0-2 wbc/hpf (0-5)
[2017-11-03 02:14] LABS: URINE AMPHETAMINES < 1000 (1000ng/ml); URINE BARBITURATES < 200 (200ng/ml); URINE BENZODIAZEPINES < 200 (200ng/ml); URINE CANNABINOIDS (THC) < 50 (50ng/ml); URINE COCAINE < 300 (300ng/ml); URINE METHADONE < 300 (300ng/ml); URINE OPIATES < 300 (300ng/ml); URINE PHENCYCLIDINE < 25 (25ng/ml)
[2017-11-03] MEDS ORDERED: WELLBUTRIN SR150 MG PO (04:44)
[2017-11-03] MEDS ORDERED: ZANAFLEX4 MG PO (04:48)
[2017-11-03 05:17] LABS: BUN 22 mg/dl (7-24); CHLORIDE 107 mmol/L (98-107); CHOLESTEROL 142 mg/dL (<200); CREATININE 0.98 mg/dL (0.55-1.02); HDL CHOLESTEROL 44 mg/dl (40-60); LDL CHOLESTEROL 74 mg/dL (9-159); PHOSPHOROUS 2.7 mg/dL (2.5-4.9); POTASSIUM 4.1 mmol/L (3.5-5.1); SODIUM 144 mmol/L (136-145); TRIGLYCERIDES 118 mg/dl (<150); VLDL CHOLESTEROL 24 mg/dL (6-40)
[2017-11-03 06:28] LABS: BASO % 0.5 % (0.0-1.0); EOS # 0.2 10*3/uL (0.0-0.4); EOS % 4.6 % (1.0-4.0); HEMOGLOBIN 8.2 g/dl (12.0-16.0); LYMPH % 26.1 % (27.0-41.0); MEAN CELL VOLUME 90.6 fl (81.0-99.0); MEAN CORPUSCULAR HGB 25.6 pg (27.0-31.0); MEAN CORPUSCULAR HGB CONC 28.3 g/dl (33.0-37.0); MEAN PLATELET VOLUME 11.6 fl (9.6-12.3); MONO # 0.3 10*3/uL (0.1-1.0); MONO % 6.9 % (3.0-9.0); NEUT # 2.4 10*3/uL (2.3-7.9); NEUT % 61.6 % (47.0-73.0); PLATELET COUNT AUTOMATED 144 10*3/uL (130-400); RED CELL DISTRI WIDTH 15.5 % (0-14.5); WHITE BLOOD COUNT 3.9 10*3/uL (4.8-10.8)
[2017-11-03 07:15] LABS: ABG BASE EXCESS 2.6 mmol/L (-2.0-2.0); ABG HCO3 28.5 mmol/l (22-26); ABG O2 SATURATION 97.9 % (95-97); ARTERIAL BLOOD GAS PCO2 52.6 mmHg (35-45); ARTERIAL BLOOD GAS PH 7.351 (7.35-7.45)
[2017-11-03 07:23] LABS: VITAMIN D, 25-HYDROXY 14.9 ng/mL (30-100)
[2017-11-03] MEDS ORDERED: PREDNISONE5 MG PO (09:30)
[2017-11-03] MEDS ORDERED: ATOVAQUONE750 MG/5 M PO (09:31)
[2017-11-03] MEDS ORDERED: VITAMIN C500 M4 PO (09:33)
[2017-11-03] MEDS ORDERED: PROVENTIL HFA6.7 GM IH (09:38)
[2017-11-03] MEDS ORDERED: VITAMIN D-32000 UNIT PO (16:37)
[2017-11-04] MEDS ORDERED: 'zithromax250 MG PO (12:55)
== END 2017-11-03 19:12 | disposition home or self-care (01) | DRG 189 ==
LOC: ED 00:24 → EDHOLD 02:38 → ICCU 02:42
PROVIDERS: Emergency Medicine Emergency Medical Services; Internal Medicine; Internal Medicine Critical Care Medicine
PROC: 5A09357 Assistance with Respiratory Ventilation, Less than 24 Consecutive Hours, Continuous Positive Airway Pressure (ICD-10-PCS; principal; 2017-11-03)
DX: J96.22 Acute and chronic respiratory failure with hypercapnia (principal); N17.0 Acute kidney failure with tubular necrosis; G93.41 Metabolic encephalopathy; E87.4 Mixed disorder of acid-base balance; E44.0 Moderate protein-calorie malnutrition; Z94.2 Lung transplant status; R45.851 Suicidal ideations; I27.0 Primary pulmonary hypertension; E11.22 Type 2 diabetes mellitus with diabetic chronic kidney disease; N18.3 Chronic kidney disease, stage 3 (moderate); D72.810 Lymphocytopenia; F32.9 Major depressive disorder, single episode, unspecified; D72.819 Decreased white blood cell count, unspecified; R80.9 Proteinuria, unspecified; E11.65 Type 2 diabetes mellitus with hyperglycemia; D64.9 Anemia, unspecified; E55.9 Vitamin D deficiency, unspecified; F41.1 Generalized anxiety disorder; Z90.49 Acquired absence of other specified parts of digestive tract; Z82.3 Family history of stroke; Z82.49 Family history of ischemic heart disease and other diseases of the circulatory system; Z88.5 Allergy status to narcotic agent; Z88.2 Allergy status to sulfonamides; Z79.899 Other long term (current) drug therapy; Z68.25 Body mass index [BMI] 25.0-25.9, adult

== ENCOUNTER 2017-11-03 23:34 | Inpatient (IN) | payer MEDICARE, OTHER ==
[~2017-11-03] VITALS: Ht 154.9 cm; Wt 47.4 kg
--- NOTE | ~2017-11-03 | CON ---
[place], [place] REPORT OF CONSULTATION NAME: CHARBEL NICOLE UNIT #: [id number] ROOM: 515 DOCTOR: GISELE ALDANA MD BIRTHDATE: [birth year] DOS: 11/05/2017 CHIEF COMPLAINT: "I am discharged, I am going home today." HISTORY OF PRESENT ILLNESS: This is a 47-year-old white female who was initially admitted through the emergency room at [facility] due to chronic respiratory failure with acute exacerbation as well as altered mental status. The patient had been admitted due to extreme lethargy as well as significant confusion. The patient does have a lengthy history of depression and a long history of severe medical problems that includes a bilateral lung transplant. The patient's psychiatric history includes chronic depression and anxiety with multiple suicide attempts. The patient subsequently upon admission to the medical floor had several of her psychotropics discontinued that included Elavil, Neurontin, and gabapentin. Subsequently, her mental status has cleared and she is to return home later today. MENTAL STATUS: This afternoon, she is alert and oriented with time gaps. Mood does seem to be bright. The only symptom she endorses is chronic poor sleep with difficulty falling asleep and sleep continuity disorder. She denies feeling anergia or anhedonia. Denies depression. She denies overriding anxiety. There is no hypomania, marilee or psychosis. Memory has some gaps especially for short term events. DIAGNOSES: Major depression, recurrent; personality disorder, not otherwise specified. PLAN: At this point, I see no further workup that needs to be required or any inpatient intervention that is required. I would agree with discharge at this point and outpatient followup as needed. GISELE ALDANA MD CM:CONSTR:REPORT OF CONSULTATION 1201 11/05/17 1334 interface
[~2017-11-03 23:34] MED LIST changes: +ATOVAQUONE750 MG/5 M PO; +PREDNISONE5 MG PO; +PROVENTIL HFA6.7 GM IH; +VITAMIN C500 M4 PO; +VITAMIN D-32000 UNIT PO; +WELLBUTRIN SR150 MG PO; +ZANAFLEX4 MG PO
[2017-11-04] VITALS (12 sets, daily range): BP systolic 120–156; BP diastolic 66–96
[2017-11-04 00:06] LABS: ABG BASE EXCESS 0.3 mmol/L (-2.0-2.0); ABG HCO3 25.3 mmol/l (22-26); ARTERIAL BLOOD GAS PCO2 45.3 mmHg (35-45); ARTERIAL BLOOD GAS PH 7.364 (7.35-7.45); ARTERIAL BLOOD GAS PO2 77.8 mmHg (80-90)
[2017-11-04 00:14] LABS: BASO % 0.3 % (0.0-1.0); HEMATOCRIT 29.6 % (37.0-47.0); HEMOGLOBIN 8.6 g/dl (12.0-16.0); LYMPH # 0.4 10*3/uL (1.3-4.4); LYMPH % 8.8 % (27.0-41.0); MEAN CELL VOLUME 88.9 fl (81.0-99.0); MEAN CORPUSCULAR HGB 25.8 pg (27.0-31.0); MEAN CORPUSCULAR HGB CONC 29.1 g/dl (33.0-37.0); MEAN PLATELET VOLUME 10.9 fl (9.6-12.3); MONO # 0.1 10*3/uL (0.1-1.0); NEUT # 3.5 10*3/uL (2.3-7.9); NEUT % 87.4 % (47.0-73.0); PLATELET COUNT AUTOMATED 147 10*3/uL (130-400); RED BLOOD COUNT 3.33 10*6/uL (4.10-5.10); RED CELL DISTRI WIDTH 15.9 % (0-14.5)
[2017-11-04 00:23] LABS: ACT PARTIAL THROMBO TIME 24.6 SECONDS (20.8-31.5)
[2017-11-04 00:27] LABS: ALBUMIN 3.6 gm/dl (3.1-4.5); ALKALINE PHOSPHATASE 109 U/L (45-117); BUN 21 mg/dl (7-24); CHLORIDE 101 mmol/L (98-107); CREATININE 1.25 mg/dL (0.55-1.02); POTASSIUM 4.6 mmol/L (3.5-5.1); SGOT/AST 13 IU/L (3-35); SGPT/ALT 17 U/L (12-78); SODIUM 136 mmol/L (136-145); TOTAL PROTEIN 6.9 gm/dL (6.4-8.2)
[2017-11-04 00:29] LABS: ACETAMINOPHEN (TYLENOL) < 2.0 ug/ml (10-30); ETHYL ALCOHOL < 3.0 mg/dl (<3); TROPONIN I < 0.015 ng/ml (<0.045)
[2017-11-04 02:22] LABS: BILIRUBIN NEGATIVE (NEGATIVE); BLOOD NEGATIVE (NEGATIVE); CLARITY CLEAR (CLEAR); COLOR YELLOW (YELLOW); GLUCOSE TRACE (NEGATIVE); KETONE NEGATIVE (NEGATIVE); LEUKO ESTERASE 1+ (NEGATIVE); NITRITE NEGATIVE (NEGATIVE); PH 5.5 (5.0-9.0); SPECIFIC GRAVITY <= 1.005 (1.005-1.030); UROBILINOGEN 0.2 E.U./dl (0.2-1.0)
[2017-11-04 02:30] LABS: URINE AMPHETAMINES < 1000 (1000ng/ml); URINE BARBITURATES < 200 (200ng/ml); URINE BENZODIAZEPINES < 200 (200ng/ml); URINE CANNABINOIDS (THC) < 50 (50ng/ml); URINE COCAINE < 300 (300ng/ml); URINE METHADONE < 300 (300ng/ml); URINE OPIATES < 300 (300ng/ml); URINE PHENCYCLIDINE < 25 (25ng/ml)
[2017-11-04 03:16] LABS: TROPONIN I < 0.015 ng/ml (<0.045)
[2017-11-04 05:36] LABS: ABG BASE EXCESS 3.6 mmol/L (-2.0-2.0); ABG HCO3 28.2 mmol/l (22-26); ABG O2 SATURATION 94.5 % (95-97); ARTERIAL BLOOD GAS PCO2 45.8 mmHg (35-45); ARTERIAL BLOOD GAS PH 7.406 (7.35-7.45); ARTERIAL BLOOD GAS PO2 70.6 mmHg (80-90)
[2017-11-04 06:01] LABS: ALBUMIN 3.3 gm/dl (3.1-4.5); ALKALINE PHOSPHATASE 89 U/L (45-117); BUN 20 mg/dl (7-24); CHLORIDE 103 mmol/L (98-107); CREATININE 1.09 mg/dL (0.55-1.02); PHOSPHOROUS 3.4 mg/dL (2.5-4.9); SGOT/AST 8 IU/L (3-35); SGPT/ALT 12 U/L (12-78); SODIUM 140 mmol/L (136-145)
[2017-11-04 06:02] LABS: BASO % 0.5 % (0.0-1.0); HEMATOCRIT 29.4 % (37.0-47.0); HEMOGLOBIN 8.4 g/dl (12.0-16.0); LYMPH % 23.3 % (27.0-41.0); MEAN CELL VOLUME 88.8 fl (81.0-99.0); MEAN CORPUSCULAR HGB 25.4 pg (27.0-31.0); MEAN CORPUSCULAR HGB CONC 28.6 g/dl (33.0-37.0); MEAN PLATELET VOLUME 11.3 fl (9.6-12.3); MONO # 0.3 10*3/uL (0.1-1.0); MONO % 6.2 % (3.0-9.0); NEUT % 69.3 % (47.0-73.0); PLATELET COUNT AUTOMATED 154 10*3/uL (130-400); RED BLOOD COUNT 3.31 10*6/uL (4.10-5.10); RED CELL DISTRI WIDTH 15.9 % (0-14.5); WHITE BLOOD COUNT 4.3 10*3/uL (4.8-10.8)
[2017-11-04 06:15] LABS: ACT PARTIAL THROMBO TIME 24.2 SECONDS (20.8-31.5); INTERNATIONAL NORM RATIO 1.1 (2.0-3.5)
[2017-11-04] MEDS ORDERED: 'zithromax250 MG PO (12:55)
[2017-11-05] VITALS: BP 137/76
[2017-11-05 06:39] LABS: CREATININE 1.24 mg/dL (0.55-1.02); POTASSIUM 4.3 mmol/L (3.5-5.1)
[2017-11-05 06:47] LABS: BASO % 0.2 % (0.0-1.0); EOS % 0.7 % (1.0-4.0); HEMATOCRIT 27.1 % (37.0-47.0); HEMOGLOBIN 7.8 g/dl (12.0-16.0); LYMPH # 1.3 10*3/uL (1.3-4.4); LYMPH % 27.8 % (27.0-41.0); MEAN CELL VOLUME 89.1 fl (81.0-99.0); MEAN CORPUSCULAR HGB 25.7 pg (27.0-31.0); MEAN CORPUSCULAR HGB CONC 28.8 g/dl (33.0-37.0); MEAN PLATELET VOLUME 11.4 fl (9.6-12.3); MONO # 0.3 10*3/uL (0.1-1.0); MONO % 6.9 % (3.0-9.0); PLATELET COUNT AUTOMATED 153 10*3/uL (130-400); RED BLOOD COUNT 3.04 10*6/uL (4.10-5.10); RED CELL DISTRI WIDTH 16.4 % (0-14.5); WHITE BLOOD COUNT 4.6 10*3/uL (4.8-10.8)
[2017-11-05 08:17] VITALS: BP 142/88
[2017-11-05 11:55] VITALS: BP 150/90
== END 2017-11-05 14:20 | disposition home or self-care (01) | DRG 917 ==
LOC: ED 23:34 → EDHOLD 11-04 02:16 → 5E 11-04 02:16
PROVIDERS: Internal Medicine; Student in an Organized Health Care Education/Training Program
PROC: 5A09357 Assistance with Respiratory Ventilation, Less than 24 Consecutive Hours, Continuous Positive Airway Pressure (ICD-10-PCS; principal; 2017-11-04)
DX: T50.994A Poisoning by other drugs, medicaments and biological substances, undetermined, initial encounter (principal); G93.41 Metabolic encephalopathy; N17.0 Acute kidney failure with tubular necrosis; J96.22 Acute and chronic respiratory failure with hypercapnia; D84.9 Immunodeficiency, unspecified; Z94.2 Lung transplant status; J44.1 Chronic obstructive pulmonary disease with (acute) exacerbation; E87.2 Acidosis; R45.851 Suicidal ideations; F33.9 Major depressive disorder, recurrent, unspecified; R79.89 Other specified abnormal findings of blood chemistry; R81 Glycosuria; K44.9 Diaphragmatic hernia without obstruction or gangrene; F41.9 Anxiety disorder, unspecified; E11.65 Type 2 diabetes mellitus with hyperglycemia; G43.909 Migraine, unspecified, not intractable, without status migrainosus; D64.9 Anemia, unspecified; E55.9 Vitamin D deficiency, unspecified; F60.9 Personality disorder, unspecified; Z79.52 Long term (current) use of systemic steroids; Z90.49 Acquired absence of other specified parts of digestive tract; Z98.84 Bariatric surgery status; Z82.3 Family history of stroke; Z82.49 Family history of ischemic heart disease and other diseases of the circulatory system; Z88.2 Allergy status to sulfonamides; Z88.6 Allergy status to analgesic agent; Z79.899 Other long term (current) drug therapy; Y92.89 Other specified places as the place of occurrence of the external cause

== ENCOUNTER 2017-12-29 13:31 | Inpatient (IN) | payer MEDICARE, OTHER ==
[~2017-12-29] VITALS: Ht 154.9 cm; Wt 44.6 kg
--- NOTE | ~2017-12-29 | CON ---
[place], [place] REPORT OF CONSULTATION NAME: CHARBEL NICOLE UNIT #: [id number] ROOM: 408 DOCTOR: DIONI LEVINE ED.D (SELIN) BIRTHDATE: [birth year] DOS: 01/05/2018 HISTORY OF PRESENT ILLNESS: The patient is a 47-year-old female referred by the hospitalist for competency evaluation. At the present time, this patient is on the fourth floor at [facility] She states she is single and she has one daughter. She apparently lives with her daughter. She has been on disability for many years due to bilateral lung transplant. Her family physician is Dr. Marks in [place], [place]. PAST MEDICAL HISTORY: Pertinent for bilateral transplant of the lungs in 1995 at the [facility], generalized anxiety disorder, major depressive disorder, chronic respiratory failure, gastric bypass, cholecystectomy. MEDICATIONS: Include Solu-Medrol, folic acid, vitamin D, Lexapro, Lovenox, omeprazole, insulin, DuoNeb, gabapentin, and Ativan. This patient denies any substance abuse issues whatsoever. She was awake, alert and oriented in all three spheres. She admits to being depressed, but denies any suicidal ideation or plan. She is concerned that her daughter has been taking her medications and this has been reported to Adult Protective Services here in [facility] according to case management services. According to staff, there are no further pending investigations, but Adult Services will continue to follow with this patient once she is discharged home. She is clearly competent to make informed healthcare decisions and the purpose of this referral was to determine her competency. She is awake, alert and oriented. She has no difficulty whatsoever with communications or cognitive skills. Again, she does report depression. DIAGNOSES: Major depressive disorder -- recurrent. RECOMMENDATIONS: In my opinion, this patient is competent to make informed healthcare decisions. Thank you very much for this consult. DIONI LEVINE ED.D CM:CONSTR:REPORT OF CONSULTATION 1731 01/06/18 0133 interface
--- NOTE | ~2017-12-29 | PR ---
[place], [place] PROGRESS NOTE NAME: CHARBEL NICOLE UNIT #: [id number] ROOM: 408 DOCTOR: MERYL HERNANDEZ MD,MARIAMA BIRTHDATE: [birth year] DOS: 01/04/2018 PULMONARY PROGRESS NOTE SUBJECTIVE: She is comfortably resting on the bed at this time, without any acute distress, coughing, sputum expectoration, or chest pain. OBJECTIVE: VITAL SIGNS: Normal temperature, respiratory rate 20, heart rate 75, blood pressure 126/70, pulse ox saturation on 3 liters cannula was 98% saturation. HEENT: Head was atraumatic. Eyes nonicterus. NECK: Supple. CARDIOVASCULAR: S1, S2 audible. LUNGS: Noted without any wheezing or crackles at the present time. ABDOMEN: Soft, nontender. Bowel sounds present. EXTREMITIES: Noted without any acute edema. IMPRESSION: 1. The patient has been currently noted with resolution of acute exacerbation of bronchiectasis. 2. History of bilateral lung transplant with chronic bronchiectasis as well. PLAN OF MANAGEMENT: No changes in the plan of care for the patient. Continue current therapy plan of management. Discharge planning was noted in progress. No further change in treatment at this time will be necessary. MARIAMA SHETH MD CM:PNTRANS [id number] MARIAMA HERNANDEZ MD 01/04/18 1533 interface
--- NOTE | ~2017-12-29 | PR ---
[place], [place] PROGRESS NOTE NAME: CHARBEL NICOLE UNIT #: [id number] ROOM: 408 DOCTOR: MERYL HERNANDEZ MD,MARIAMA BIRTHDATE: [birth year] DOS: 01/05/2018 PULMONARY PROGRESS NOTE SUBJECTIVE: The patient noted comfortable at this time, resting on the bed, has not been reporting any symptoms of chest pain, minimal cough was noted without any sputum expectoration and symptoms of abdominal pain. OBJECTIVE: VITAL SIGNS: For the patient which was recorded shows the temperature noted as normal. The respiratory recorded 18, heart rate 77, blood pressure 145/82. Pulse ox saturation on 3 liters nasal cannula 97% saturation at rest noted. HEENT: Examination shows head was atraumatic. Eyes nonicterus. NECK: Supple. CARDIOVASCULAR: S1, S2 is audible. LUNGS: The patient was noted without any wheezing, no crackles. ABDOMEN: Soft, nontender. EXTREMITIES: Without any acute edema. IMPRESSION: 1. History of bilateral lung transplantation for the patient was noted 20 years ago with current bronchiectasis with acute exacerbation, resolved. 2. Debility. 3. Some social issues. PLAN OF MANAGEMENT: The patient was awaiting for placement in the nursing facility. In the meantime, no other change in treatment needs to be done. Continue bronchodilators and other symptomatic management. Usual care, other supportive therapy, plan of management and care. MARIAMA SHETH MD CM:PNTRANS [id number] MARIAMA HERNANDEZ MD 01/05/18 2256 interface
--- NOTE | ~2017-12-29 | PR ---
[place], [place] PROGRESS NOTE NAME: CHARBEL NICOLE UNIT #: [id number] ROOM: 408 DOCTOR: MERYL HERNANDEZ MD,MARIAMA BIRTHDATE: [birth year] DOS: 01/02/2018 SUBJECTIVE: She has been noted comfortable at this time, resting in the bed without any distress, coughing, sputum expectoration, chest pain or hemoptysis. OBJECTIVE: VITAL SIGNS: For the patient, which are recorded showed the temperature noted normal, respiratory rate 16, heart rate 66, blood pressure 127/71. Pulse ox saturation on 3 liters nasal cannula 100% saturation. HEENT: Examination shows head was atraumatic. Eyes nonicterus. NECK: Supple. CARDIOVASCULAR: S1, S2 is audible. LUNGS: The patient was noted without any wheeze or crackle at the present time. ABDOMEN: Soft, nontender. EXTREMITIES: Without acute edema. LABORATORY DATA: IgE level as well as IgG and subclasses were all noted normal. IMPRESSION: 1. The patient with bronchiectasis, acute exacerbation, responding to current treatment. 2. Hyperglycemia, improved significantly after the reduction of corticosteroids to be discontinued in the next couple of days. PLAN OF MANAGEMENT: Discharge planning will be started for the patient whenever desired from the pulmonary standpoint upon stability of the medical conditions. No further assessment of the patient's bronchiectasis will be done. MARIAMA SHETH MD CM:PNTRANS [id number] MARIAMA HERNANDEZ MD 01/02/18 1534 interface
--- NOTE | ~2017-12-29 | PR ---
[place], [place] PROGRESS NOTE NAME: CHARBEL NICOLE UNIT #: [id number] ROOM: 408 DOCTOR: MERYL HERNANDEZ MD,MARIAMA BIRTHDATE: [birth year] DOS: 01/06/2018 SUBJECTIVE: She has been noted comfortable at this time, still awaiting for the patient for discharge planning. The patient stated that she might be discharged home today with her daughter. Not reported any symptoms of coughing, sputum expectoration, chest pain, wheezing, fever or chills. OBJECTIVE: VITAL SIGNS: Normal temperature, respiratory rate 18, heart rate 71, blood pressure 133/73 and pulse ox saturation on 3 liters nasal cannula 99% saturation. HEENT: Examination shows head was atraumatic. Eyes nonicterus. NECK: Supple. CARDIOVASCULAR: S1, S2 is audible. LUNGS: The patient was noted without any wheezing or crackles at the present time. ABDOMEN: Soft, nontender. EXTREMITIES: Without acute edema. LABORATORY DATA: CBC of the patient's hemoglobin 9.1, remaining CBC was normal. Creatinine was noted normal today. IMPRESSION: The patient with resolution of acute bronchiectasis with history of lung transplant bilaterally over 20 years ago, primary pulmonary hypertension. PLAN OF MANAGEMENT: No changes in plan of care for the patient pulmonary standpoint. Discharge planning has already been made for this patient. MARIAMA SHETH MD CM:PNTRANS [id number] MARIAMA HERNANDEZ MD 01/14/18 0810 interface
--- NOTE | ~2017-12-29 | PR ---
[place], [place] PROGRESS NOTE NAME: CHARBEL NICOLE UNIT #: [id number] ROOM: 408 DOCTOR: MARIAMA BURTON MD BIRTHDATE: [birth year] DOS: 01/03/2018 PULMONARY PROGRESS NOTE SUBJECTIVE: She was noted comfortable at this time, resting in the bed. Denies symptoms of chest pain, coughing, sputum expectoration, or abdominal pain. Denies symptoms of nausea or vomiting. OBJECTIVE: VITAL SIGNS: Normal temperature, respiratory rate 20, heart rate 76, blood pressure 125/72. Pulse oxygen saturation 3 liters canula noted as 98% saturation. HEENT: Head was atraumatic. Eyes nonicterus. NECK: Supple. CARDIOVASCULAR: S1, S2 is audible. LUNGS: The patient was noted without any wheezing or crackles. The lung were noted clear bilaterally. ABDOMEN: Soft, nontender. EXTREMITIES: Without any acute edema. LABORATORY DATA: BMP: BUN 30, creatinine was normal. CBC: Normal WBC count, hemoglobin 8.9. The platelets are noted mildly decreased as 94,000. IMPRESSION: 1. The patient with resolving acute exacerbation of bronchiectasis. 2. Thrombocytopenia, which has been noted stable at this time, the etiology unclear, may be related to the medication used by the patient is the likely cause. 3. History of bilateral lung transplant with chronic immunosuppression. PLAN OF MANAGEMENT: No changes from the pulmonary standpoint. Discharge planning for the patient remains in progress and being considered for possibility of placement in the supervised nursing facility. Continue in the meantime other supportive therapy, plan of management and care. [place], [place] PROGRESS NOTE NAME: CHARBEL NICOLE UNIT #: [id number] ROOM: 408 DOCTOR: MARIAMA BURTON MD BIRTHDATE: [birth year] MARIAMA SHETH MD CM:PNTRANS [id number] MARIAMA HERNANDEZ MD 01/04/18 0026 interface
--- NOTE | ~2017-12-29 | PR ---
[place], [place] PROGRESS NOTE NAME: CHARBEL NICOLE UNIT #: [id number] ROOM: 408 DOCTOR: MERYL HERNANDEZ MD,MARIAMA BIRTHDATE: [birth year] DOS: 12/31/2017 SUBJECTIVE: She has been noted comfortable at this time, resting on the bed. She has not been noted symptoms of chest pain or abdominal pain. There were no symptoms of coughing or sputum expectoration reported. OBJECTIVE: VITAL SIGNS: For the patient which are recorded showed normal temperature, respiratory rate 18, heart rate 77, blood pressure 120/72. Pulse ox saturation on 3 liters nasal cannula was 97% saturation. HEENT: Examination shows head was atraumatic. Eye nonicterus. NECK: Supple. CARDIOVASCULAR: S1, S2 audible. LUNGS: The patient was noted without any wheeze or crackles at the present time. ABDOMEN: Soft, nontender. Bowel sounds present. EXTREMITIES: Without any acute edema. LABORATORY DATA: CBC today: WBC count 7.4, hemoglobin 26.7. IMPRESSION: 1. Bronchiectasis with possibility of acute exacerbation. 2. Severe hyperglycemia, improving with corticosteroids. 3. Chronic bronchiectasis. 4. History of bilateral lung transplant. PLAN OF MANAGEMENT: Decrease the Solu-Medrol dose further to 20 mg daily. Continue antibiotic. She was planned for blood transfusion because of the anemia ordered by the primary care attending. In the meantime, continue the therapy, plan of management care. Additional treatment changes to be done based on the progression of illness. MARIAMA SHETH MD CM:PNTRANS [id number] MARIAMA HERNANDEZ MD 01/14/18 0809 interface
--- NOTE | ~2017-12-29 | PR ---
[place], [place] PROGRESS NOTE NAME: CHARBEL NICOLE UNIT #: [id number] ROOM: 408 DOCTOR: MERYL HERNANDEZ MD,MARIAMA BIRTHDATE: [birth year] DOS: 01/01/2018 SUBJECTIVE: She has been noted comfortable at this time, resting in the bed. Denies any acute shortness of breath, coughing, chest pain or sputum expectoration. Hyperglycemia for the patient has improved with reduction of corticosteroids. OBJECTIVE: VITAL SIGNS: For the patient, which have been recorded shows temperature noted as normal, respiratory rate 16, heart rate 66, and blood pressure 127/69. The pulse oxygen saturation noted on 3 liters nasal cannula 94% saturation. HEENT: Head was atraumatic. Eyes nonicterus. NECK: Supple. CARDIOVASCULAR: S1, S2 audible. LUNGS: Clear. ABDOMEN: Soft, nontender. Bowel sounds present. EXTREMITIES: Without any acute edema. LABORATORY DATA: BMP: BUN 33, creatinine 1.20. CBC of the patient this morning, hemoglobin 8.9. IMPRESSION: 1. The patient bronchiectasis with acute exacerbation. Shortness of breath has been improving. 2. History of bilateral lung transplant. PLAN OF MANAGEMENT: No changes from the Pulmonary standpoint at this time. Continue current other treatment plan of management managing her diabetes, uncontrolled hyperglycemia and other treatments. MARIAMA SHETH MD CM:PNTRANS [id number] MARIAMA HERNANDEZ MD 01/01/18 1456 interface
--- NOTE | ~2017-12-29 | CON ---
[place], [place] REPORT OF CONSULTATION [id number] UNIT #: [id number] ROOM: 408 DOCTOR: MARIAMA BURTON MD BIRTHDATE: [birth year] DOS: 12/30/2017 PULMONARY CONSULTATION, EVALUATION, AND MANAGEMENT CONSULTATION REQUESTED BY: Hospitalist services. REASON FOR CONSULTATION: To assess the patient's symptoms of shortness of breath and others. HISTORY OF PRESENT ILLNESS: This is a 47-year-old white female with known history of bilateral lung transplantation done at [facility] about 21 years ago for the medical problem of pulmonary hypertension. The patient has been admitted to the hospital in 10/2017 twice, noted with multiple medication use for the generalized anxiety disorder and depression. Medications has been adjusted and she was discharged home subsequently successfully on 10/26/2017, asymptomatic. The patient denies any symptoms of chest pain or cough at this time. She presented to the hospital experiencing gradual increased shortness of breath, which has been reported in the past couple of weeks with worsening. The patient denies any symptoms of coughing, chest pain, sputum expectoration, fever, or chills. Denies symptoms of hemoptysis. The patient stated that she has been recently taking increase steroids to help gain weight as the patient has been noted with gradual weight loss. REVIEW OF SYSTEMS: CONSTITUTIONAL SYMPTOMS: Fatigue and tiredness reported. Denies any symptoms of fever or chills. EYES: Denies any burning, redness, or tenderness. EARS, NOSE, AND THROAT SYMPTOMS: Denies sore throat, hoarseness, otalgia, postnasal drainage, or epistaxis. CARDIOVASCULAR SYSTEM: Denies anginal pain, edema, or pain of lower extremity. GASTROINTESTINAL SYMPTOMS: Denies dysphagia, nausea, vomiting, diarrhea, abdominal pain, hematemesis, melena, or hematochezia with history of chronic weight loss reported by the patient. GENITOURINARY SYMPTOMS: Denies dysuria, suprapubic pain, or hematuria. MUSCULOSKELETAL SYMPTOMS: The patient did not report any symptoms of pain in any joints, redness, or tenderness. SKIN: Denies abnormal lesions or rashes. CENTRAL NERVOUS SYSTEM: General weakness and fatigue was reported. Remaining systems were reviewed with the patient and they were noted all negative. PAST MEDICAL HISTORY: Noted as: 1. History of bilateral lung transplant for pulmonary hypertension management in 1995 in [facility]. 2. Generalized anxiety disorder and depression. 3. Chronic immunosuppression posttransplant. 4. Bronchiectasis, which has been noted in the lower lung mostly asymptomatic after the lung transplant. 5. Weight loss was also reported. [place], [place] REPORT OF CONSULTATION NAME: CHARBEL NICOLE UNIT #: [id number] ROOM: 408 DOCTOR: MARIAMA BURTON MD BIRTHDATE: [birth year] PAST SURGICAL HISTORY: 1. Appendectomy. 2. Cholecystectomy. 3. Gastric bypass grafting. 4. Bilateral lung transplant in 1995 in [facility] for primary pulmonary hypertension. 5. Chronic respiratory failure, use of oxygen 3 liters nasal cannula. SOCIAL HISTORY: The patient is single, has one child, and lives at home by herself. She denies history of alcohol use, tobacco, or any illicit drugs. FAMILY HISTORY: Reported for CVA and essential hypertension. MEDICATIONS: Current medications administered noted use of: 1. Solu-Medrol 40 mg b.i.d. 2. Folic acid 1 mg daily. 3. Vitamin D 2000 international units daily. 4. Vitamin C 500 mg daily. 5. Lexapro 20 mg daily. 6. Lovenox 30 mg subcutaneous daily, DVT prophylaxis. 7. Sliding scale insulin coverage. 8. Omeprazole 20 mg daily. 9. Tacrolimus 4 mg p.o. b.i.d. 10. Mycophenolate mofetil 500 mg p.o. b.i.d. 11. DuoNeb q.4 hours. 12. Lorazepam 1 mg p.o. b.i.d. p.r.n. for generalized anxiety. 13. Zithromax and Rocephin. DRUG ALLERGY HISTORY: THE PATIENT REPORTED ALLERGY TO: 1. SULFA DRUGS. 2. MORPHINE. PHYSICAL EXAMINATION: GENERAL: This is a 47-year-old white female who has been noted currently awake and alert without any acute distress at the time of the assessment. Height was noted as 5 feet 1 inch and weight of 98 pounds. The patient's weight in 10/2017 was recorded as 109 pounds at that time. VITAL SIGNS: The vital signs for the patient recorded shows the temperature noted normal since admission, respiratory rate 18-25, heart rate of 89-102, and blood pressure 117/82-139/81. Pulse oxygen saturation recorded as 100% on 3 liters nasal cannula. HEENT: Examination noted head was atraumatic. Eyes nonicterus. NECK: Supple. CARDIOVASCULAR: S1, S2 is audible. LUNGS: The patient was noted with [id number] decreased breath sounds without any active wheezing or crackles heard. ABDOMEN: Soft, flat, and nontender. Bowel sounds present. EXTREMITIES: Without any acute edema. Some loss of muscle mass was noted. CENTRAL NERVOUS SYSTEM: Cranial nerves 2-12 intact. No focal deficit. VISIBLE SKIN: No lesions or rashes. [place], [place] REPORT OF CONSULTATION NAME: CHARBEL NICOLE UNIT #: [id number] ROOM: [facility] DOCTOR: MERYL HERNANDEZ MD,MARIAMA BIRTHDATE: [birth year] LABORATORY DATA: Lactic acid noted 1.4 on admission of 12/29/2017. CBC yesterday on admission, WBC count normal hemoglobin 10, hematocrit 35.0, and platelet count normal. The PT and PTT noted as normal. CMP of 12/29/2017 was noted as glucose 286, BUN 21, and creatinine 1.63. CMP of the patient this morning, glucose 526, BUN 31, creatinine 2.07, and sodium 131. CBC this morning, WBC count 4.6, hemoglobin 8.8, hematocrit 27.9, and platelet count 109,000. DIAGNOSTIC DATA: Chest x-ray of the patient that was done, 2-view, does not show any acute pulmonary infiltration. The CT scan of the chest that was completed this morning was reviewed was noted without any acute pulmonary infiltration or other abnormalities. Evidence of stable cylindrical bronchiectasis noted in the lower lungs. IMPRESSION: 1. The patient who has been admitted to the hospital with current symptoms of shortness of breath may be related to the exacerbation of pulmonary disease with bronchiectasis. Bronchoscopy was noted chronic long-term. 2. The patient with evidence of severe hyperglycemia resulting from the use of the corticosteroids as well. 3. Pancytopenia was also noted on this admission as well, most likely related to the current medication. 4. Chronic immunosuppressive therapy for the lung transplant. 5. Evidence of acute injury was also noted with significant elevation in creatinine either the medication-induced as the patient taking tacrolimus or intravascular volume depletion combination factors. The creatinine in 10/2017 was noted as 1.20. PLAN OF MANAGEMENT: Decrease the Solu-Medrol dose to only 40 mg daily for aggressive medical and severe hyperglycemia, which is uncontrolled. Continue current antibiotic. No treatment changes noted unless on the patient would be noted any culture, which prove the changes in the antibiotics at that time. Supportive therapy, plan of management, and care. The lab testing was ordered for the patient for the tacrolimus as well. Consider obtaining consultation from the Nephrology services as well. Monitoring of the respiratory status will be done closely otherwise at this time. The pancytopenia will be monitored. Order the IgE and IgG subclasses for current assessment of bronchiectasis. Other supportive therapy, plan of management, and other care plan. Usual treatment. Supportive care and plan of therapy. Continue oxygen supplementation. Maintain the pulse ox saturation 90% or greater for the chronic hypoxic respiratory failure. Thanks for allowing me to participate in the care of this patient. [place], [place] REPORT OF CONSULTATION NAME: COREYCHARBEL Vee UNIT #: [id number] ROOM: [facility] DOCTOR: MARIAMA BURTON MD BIRTHDATE: [birth year] MARIAMA SHETH MD CM:CONSTR:REPORT OF CONSULTATION 1457 12/31/17 0019 interface
--- NOTE | ~2017-12-29 | CON ---
[place], [place] REPORT OF CONSULTATION NAME: CHARBEL NICOLE UNIT #: [id number] ROOM: 408 DOCTOR: INDIO AZEVEDOBEHZADIza BIRTHDATE: [birth year] DOS: 12/30/2017 REASON FOR CONSULTATION: Chest pain. HISTORY OF PRESENT ILLNESS: The patient is a 47-year-old patient with history of chronic respiratory failure, history of double lung transplant about 21 years ago due to primary pulmonary hypertension, on home oxygen, was admitted for shortness of breath and chest pain. She noted to have some progressive shortness of breath and some dizziness. In the Emergency Room, she mentioned that she had some sharp pain at the left chest near the lateral aspect of the 12th rib. This is like sharp pain with no radiation, lasts for few seconds and cardiology is consulted for further recommendations. She had a stress test a year ago, results not available. She had an echo in October, which showed normal LV function, mild tricuspid regurgitation with indeterminate diastolic function. Her main complaint is progressive shortness of breath, but no edema, no PND, no orthopnea. No palpitation or dizziness. No syncope. No nausea or vomiting. No neurologic symptoms, no visual symptoms. No genitourinary symptoms. Her only complaint is intermittent, sharp pain near the left 12th rib, mostly resting pain and relieved by itself and is reproducible with palpitation. There is no fever, no chills. REVIEW OF SYSTEMS: Review of the 10 system negative except as mentioned above. PAST MEDICAL HISTORY: 1. Hypertension. 2. Chronic respiratory failure. 3. COPD. 4. Diabetes type 2. 5. Vitamin D deficiency. 6. Chronic anemia. 7. Anxiety. PAST SURGICAL HISTORY: 1. History of double lung transplant about 21 years ago. 2. History of gastric bypass. 3. Cholecystectomy. 4. Appendicectomy. SOCIAL HISTORY: The patient does not smoke or drink, does not use illicit drugs. FAMILY HISTORY: Nil contributory in father and mother except history of hypertension, strokes. ALLERGIES: Reviewed. HOME MEDICATIONS: Reviewed. PHYSICAL EXAMINATION: VITAL SIGNS: Blood pressure 145/76, pulse 99, respiration is 18, weight 44.6 [place], [place] REPORT OF CONSULTATION NAME: CHARBEL NICOLE UNIT #: [id number] ROOM: 408 DOCTOR: INDIO AZEVEDO,PEGGY BIRTHDATE: [birth year] kilos with a BMI 18.6. GENERAL: Alert, comfortable, in no acute distress. HEENT: Pupils are unequal, no jaundice. Tongue was moist and pharynx clear. NECK: Supple, no distended neck veins. No carotid bruit. CHEST: Symmetrical. There is mild tenderness of the left lateral chest wall near the twelfth rib area. HEART: Regular rhythm, no S3. Grade 1/6 systolic murmur at the right sternal border. No palpable thrills. ABDOMEN: Benign, nontender. Bowel sounds normal. EXTREMITIES: Showed no edema. Distal pulses palpable. SKIN: Warm and dry. No cyanosis, no clubbing. NEUROLOGIC: The patient is alert, oriented. No focal neurologic deficit. PSYCHIATRIC: The patient is alert with good mood and affect. GENITOURINARY: Deferred. RECTAL: Deferred. MUSCULOSKELETAL: No joint tenderness or swelling. REVIEW OF THE DIAGNOSTIC TESTS: EKG showed sinus rhythm with a possible old anteroseptal infarction. Her labs reviewed. IMAGING STUDIES: Reviewed. The pertinent labs include hemoglobin 8, creatinine 2.0, platelets are 109,000, vitamin D 14.1, albumin 2.8. A 2D echo from 11/05/2017 reviewed. IMPRESSIONS: 1. Chest pain, atypical. EKG showed no acute ischemic changes, the patient had a stress test about a year ago, results not available. She does have recurrent chest pain, then I would recommend Lexiscan stress test. 2. Chronic respiratory failure, on home oxygen. 3. Abnormal EKG with possible old anteroseptal infarction. 4. Chronic anemia. Monitor her hemoglobin and hematocrit. 5. Acute renal failure. The patient is on IV fluids. Monitor her renal function. 6. Chronic thrombocytopenia. 7. History of double lung transplant. 8. Vitamin D deficiency. RECOMMENDATIONS: She appears to be stable and stable from the cardiac standpoint, blood pressure and heart rates are stable. Cardiology will sign off and please call us back if needed. She can follow up with [facility] if she desires after her discharge in 2-4 weeks. [place], [place] REPORT OF CONSULTATION NAME: CHARBEL NICOLE UNIT #: [id number] ROOM: 408 DOCTOR: INDIO AZEVEDO,PEGGY BIRTHDATE: [birth year] PEGGY BORJAS MD CM:CONSTR:REPORT OF CONSULTATION 1245 12/31/17 0211 interface
[~2017-12-29 13:31] MED LIST changes: +'zithromax250 MG PO
[2017-12-29 13:37] VITALS: BP 117/82
[2017-12-29 14:41] LABS: BASO % 0.6 % (0.0-1.0); EOS # 0.1 10*3/uL (0.0-0.4); EOS % 1.8 % (1.0-4.0); LYMPH # 0.7 10*3/uL (1.3-4.4); LYMPH % 9.2 % (27.0-41.0); MEAN CELL VOLUME 89.3 fl (81.0-99.0); MEAN CORPUSCULAR HGB 25.5 pg (27.0-31.0); MEAN CORPUSCULAR HGB CONC 28.6 g/dl (33.0-37.0); MEAN PLATELET VOLUME 10.4 fl (9.6-12.3); MONO # 0.1 10*3/uL (0.1-1.0); MONO % 1.5 % (3.0-9.0); NEUT # 6.2 10*3/uL (2.3-7.9); NEUT % 86.5 % (47.0-73.0); PLATELET COUNT AUTOMATED 164 10*3/uL (130-400); RED BLOOD COUNT 3.92 10*6/uL (4.10-5.10); RED CELL DISTRI WIDTH 16.3 % (0-14.5); WHITE BLOOD COUNT 7.2 10*3/uL (4.8-10.8)
[2017-12-29 14:52] LABS: ACT PARTIAL THROMBO TIME 22.3 SECONDS (20.8-31.5); INTERNATIONAL NORM RATIO 1.1 (2.0-3.5)
[2017-12-29 14:57] LABS: ALBUMIN 3.5 gm/dl (3.1-4.5); ALKALINE PHOSPHATASE 114 U/L (45-117); BUN 21 mg/dl (7-24); CHLORIDE 102 mmol/L (98-107); CREATININE 1.63 mg/dL (0.55-1.02); LIPASE 38 U/L (73-393); POTASSIUM 4.9 mmol/L (3.5-5.1); SGOT/AST 7 IU/L (3-35); SGPT/ALT 12 U/L (12-78); SODIUM 137 mmol/L (136-145)
[2017-12-29 15:07] VITALS: BP 112/70
[2017-12-29 15:37] VITALS: BP 125/80
[2017-12-29 16:10] VITALS: BP 135/81
[2017-12-29 20:00] VITALS: BP 120/76
[2017-12-29] MEDS ORDERED: ATIVAN1 MG PO (20:30)
[2017-12-30] VITALS: BP 139/81
[2017-12-30 06:01] LABS: MEAN CORPUSCULAR HGB 25.8 pg (27.0-31.0); MEAN CORPUSCULAR HGB CONC 28.7 g/dl (33.0-37.0); MEAN PLATELET VOLUME 11.1 fl (9.6-12.3); RED CELL DISTRI WIDTH 16.8 % (0-14.5); WHITE BLOOD COUNT 4.6 10*3/uL (4.8-10.8)
[2017-12-30 06:03] LABS: ALBUMIN 2.8 gm/dl (3.1-4.5); CREATININE 2.07 mg/dL (0.55-1.02); FREE T4 0.8 ng/dl (0.76-1.46); PHOSPHOROUS 2.7 mg/dL (2.5-4.9); POTASSIUM 4.8 mmol/L (3.5-5.1); TOTAL PROTEIN 5.8 gm/dL (6.4-8.2)
[2017-12-30 06:07] LABS: HEMATOCRIT 27.9 % (37.0-47.0); PLATELET COUNT AUTOMATED 109 10*3/uL (130-400); THYROID STIM HORMONE (HS) 0.23 uIU/ml (0.358-4.75)
[2017-12-30 06:52] LABS: TOTAL CELLS COUNTED 100 #CELLS
[2017-12-30 06:53] LABS: PLATELET SUFFICIENCY LOW (NORMAL)
[2017-12-30 07:45] LABS: VITAMIN D, 25-HYDROXY 14.1 ng/mL (30-100)
[2017-12-30 08:00] VITALS: BP 148/76
[2017-12-30 12:00] VITALS: BP 137/77
[2017-12-30 16:00] VITALS: BP 129/72
[2017-12-30 20:00] VITALS: BP 123/78
[2017-12-31] VITALS (8 sets, daily range): BP systolic 127–146; BP diastolic 70–91
[2017-12-31 06:34] LABS: BASO % 0.3 % (0.0-1.0); EOS % 0.3 % (1.0-4.0); HEMATOCRIT 26.7 % (37.0-47.0); HEMOGLOBIN 7.4 g/dl (12.0-16.0); LYMPH # 1.1 10*3/uL (1.3-4.4); LYMPH % 19.2 % (27.0-41.0); MEAN CELL VOLUME 90.2 fl (81.0-99.0); MEAN CORPUSCULAR HGB CONC 27.7 g/dl (33.0-37.0); MEAN PLATELET VOLUME 11.7 fl (9.6-12.3); MONO # 0.3 10*3/uL (0.1-1.0); MONO % 5.4 % (3.0-9.0); NEUT # 4.3 10*3/uL (2.3-7.9); NEUT % 74.5 % (47.0-73.0); PLATELET COUNT AUTOMATED 111 10*3/uL (130-400); RED BLOOD COUNT 2.96 10*6/uL (4.10-5.10); RED CELL DISTRI WIDTH 17.4 % (0-14.5); WHITE BLOOD COUNT 5.8 10*3/uL (4.8-10.8)
[2017-12-31 06:49] LABS: ALBUMIN 2.6 gm/dl (3.1-4.5); POTASSIUM 4.6 mmol/L (3.5-5.1); TOTAL PROTEIN 5.2 gm/dL (6.4-8.2)
[2017-12-31 07:20] LABS: CREATININE 1.66 mg/dL (0.55-1.02)
[2017-12-31 08:10] LABS: IMMUNOGLOBULIN M, QNT 60 mg/dL (26-217)
[2017-12-31 22:05] LABS: IGG SUBCLASS 1 423 mg/dL (248-810); IGG SUBCLASS 2 273 mg/dL (130-555); IGG SUBCLASS 3 47 mg/dL (15-102); IGG SUBCLASS 4 6 mg/dL (2-96); IMMUNOGLOBULIN G, QNT 737 mg/dL (700-1600)
[2018-01-01] VITALS: BP 127/83
[2018-01-01 06:14] LABS: BASO % 0.2 % (0.0-1.0); EOS % 0.2 % (1.0-4.0); HEMOGLOBIN 8.9 g/dl (12.0-16.0); LYMPH # 1.5 10*3/uL (1.3-4.4); LYMPH % 23.8 % (27.0-41.0); MEAN CELL VOLUME 91.2 fl (81.0-99.0); MEAN CORPUSCULAR HGB 26.2 pg (27.0-31.0); MEAN CORPUSCULAR HGB CONC 28.7 g/dl (33.0-37.0); MEAN PLATELET VOLUME 10.9 fl (9.6-12.3); MONO # 0.3 10*3/uL (0.1-1.0); MONO % 5.2 % (3.0-9.0); NEUT # 4.3 10*3/uL (2.3-7.9); NEUT % 70.3 % (47.0-73.0); PLATELET COUNT AUTOMATED 93 10*3/uL (130-400); RED CELL DISTRI WIDTH 16.9 % (0-14.5); WHITE BLOOD COUNT 6.2 10*3/uL (4.8-10.8)
[2018-01-01 06:41] LABS: ALBUMIN 2.5 gm/dl (3.1-4.5); CREATININE 1.2 mg/dL (0.55-1.02); POTASSIUM 4.5 mmol/L (3.5-5.1); TOTAL PROTEIN 5.2 gm/dL (6.4-8.2)
[2018-01-01 08:00] VITALS: BP 127/69
[2018-01-01 12:00] VITALS: BP 148/79
[2018-01-01 16:00] VITALS: BP 148/84
[2018-01-01 20:00] VITALS: BP 147/98
[2018-01-01 20:07] LABS: IMMUNOGLOBULIN IgE 002170 <2 IU/mL (0-100)
[2018-01-02] VITALS: BP 144/63
[2018-01-02 06:21] LABS: BASO % 0.4 % (0.0-1.0); EOS # 0.1 10*3/uL (0.0-0.4); EOS % 1.1 % (1.0-4.0); HEMATOCRIT 32.8 % (37.0-47.0); HEMOGLOBIN 9.3 g/dl (12.0-16.0); LYMPH # 1.5 10*3/uL (1.3-4.4); MEAN CELL VOLUME 91.6 fl (81.0-99.0); MEAN CORPUSCULAR HGB CONC 28.4 g/dl (33.0-37.0); MEAN PLATELET VOLUME 10.9 fl (9.6-12.3); MONO # 0.4 10*3/uL (0.1-1.0); MONO % 7.2 % (3.0-9.0); NEUT # 3.6 10*3/uL (2.3-7.9); NEUT % 64.9 % (47.0-73.0); PLATELET COUNT AUTOMATED 82 10*3/uL (130-400); RED BLOOD COUNT 3.58 10*6/uL (4.10-5.10); RED CELL DISTRI WIDTH 16.2 % (0-14.5); WHITE BLOOD COUNT 5.6 10*3/uL (4.8-10.8)
[2018-01-02 06:45] LABS: ALBUMIN 2.5 gm/dl (3.1-4.5); ALKALINE PHOSPHATASE 79 U/L (45-117); BUN 34 mg/dl (7-24); CHLORIDE 109 mmol/L (98-107); CREATININE 1.02 mg/dL (0.55-1.02); SGOT/AST 11 IU/L (3-35); SGPT/ALT 12 U/L (12-78); SODIUM 142 mmol/L (136-145); TOTAL PROTEIN 4.8 gm/dL (6.4-8.2)
[2018-01-02 08:00] VITALS: BP 127/71
[2018-01-02 12:00] VITALS: BP 139/94
[2018-01-02 16:00] VITALS: BP 135/89
[2018-01-02 20:00] VITALS: BP 126/83
[2018-01-03] VITALS: BP 133/86
[2018-01-03 06:26] LABS: BASO % 0.4 % (0.0-1.0); EOS # 0.1 10*3/uL (0.0-0.4); EOS % 1.3 % (1.0-4.0); HEMATOCRIT 31.2 % (37.0-47.0); HEMOGLOBIN 8.9 g/dl (12.0-16.0); LYMPH # 1.8 10*3/uL (1.3-4.4); LYMPH % 32.9 % (27.0-41.0); MEAN CELL VOLUME 91.2 fl (81.0-99.0); MEAN CORPUSCULAR HGB CONC 28.5 g/dl (33.0-37.0); MEAN PLATELET VOLUME 11.2 fl (9.6-12.3); MONO # 0.3 10*3/uL (0.1-1.0); MONO % 5.8 % (3.0-9.0); NEUT # 3.2 10*3/uL (2.3-7.9); NEUT % 59.2 % (47.0-73.0); PLATELET COUNT AUTOMATED 94 10*3/uL (130-400); RED BLOOD COUNT 3.42 10*6/uL (4.10-5.10); RED CELL DISTRI WIDTH 16.3 % (0-14.5); WHITE BLOOD COUNT 5.4 10*3/uL (4.8-10.8)
[2018-01-03 06:39] LABS: BUN 30 mg/dl (7-24); CHLORIDE 108 mmol/L (98-107); CREATININE 0.93 mg/dL (0.55-1.02); POTASSIUM 4.5 mmol/L (3.5-5.1); SODIUM 141 mmol/L (136-145)
[2018-01-03 08:00] VITALS: BP 126/72
[2018-01-03 12:00] VITALS: BP 125/72
[2018-01-03 16:00] VITALS: BP 132/76
[2018-01-03 20:00] VITALS: BP 145/79
[2018-01-04] VITALS: BP 127/86
[2018-01-04 08:00] VITALS: BP 126/70
[2018-01-04 12:00] VITALS: BP 140/82
[2018-01-04] MEDS ORDERED: LEVAQUIN500 M2 PO (12:40)
[2018-01-04 16:00] VITALS: BP 135/88
[2018-01-04 20:00] VITALS: BP 136/83
[2018-01-05] VITALS: BP 130/75
[2018-01-05 08:00] VITALS: BP 145/82
[2018-01-05 12:00] VITALS: BP 152/86
[2018-01-05] MEDS ORDERED: LEXAPRO20 MG PO (14:56)
[2018-01-05 16:00] VITALS: BP 149/80
[2018-01-05 20:00] VITALS: BP 130/82
[2018-01-06] VITALS: BP 113/74
[2018-01-06 06:18] LABS: BASO % 0.4 % (0.0-1.0); EOS # 0.2 10*3/uL (0.0-0.4); EOS % 4.6 % (1.0-4.0); HEMATOCRIT 32.9 % (37.0-47.0); HEMOGLOBIN 9.1 g/dl (12.0-16.0); LYMPH # 1.4 10*3/uL (1.3-4.4); LYMPH % 27.4 % (27.0-41.0); MEAN CORPUSCULAR HGB CONC 27.7 g/dl (33.0-37.0); MEAN PLATELET VOLUME 9.6 fl (9.6-12.3); MONO # 0.5 10*3/uL (0.1-1.0); MONO % 8.6 % (3.0-9.0); NEUT # 3.1 10*3/uL (2.3-7.9); NEUT % 58.4 % (47.0-73.0); PLATELET COUNT AUTOMATED 73 10*3/uL (130-400); RED CELL DISTRI WIDTH 16.4 % (0-14.5); WHITE BLOOD COUNT 5.2 10*3/uL (4.8-10.8)
[2018-01-06 06:41] LABS: CREATININE 0.98 mg/dL (0.55-1.02)
[2018-01-06 08:00] VITALS: BP 133/73
[2018-01-06 12:00] VITALS: BP 137/88
== END 2018-01-06 14:10 | disposition home or self-care (01) | DRG 871 ==
LOC: ED 13:31 → 4E 15:49 → EDHOLD 15:49 → 4E 15:54
PROVIDERS: Internal Medicine; Internal Medicine Critical Care Medicine; Internal Medicine Hospice and Palliative Medicine; Nurse Practitioner Family
PROC: 30233N1 Transfusion of Nonautologous Red Blood Cells into Peripheral Vein, Percutaneous Approach (ICD-10-PCS; principal; 2017-12-31)
DX: A41.9 Sepsis, unspecified organism (principal); J18.9 Pneumonia, unspecified organism; N17.0 Acute kidney failure with tubular necrosis; J96.11 Chronic respiratory failure with hypoxia; D61.818 Other pancytopenia; E44.0 Moderate protein-calorie malnutrition; Z94.2 Lung transplant status; E87.8 Other disorders of electrolyte and fluid balance, not elsewhere classified; J44.1 Chronic obstructive pulmonary disease with (acute) exacerbation; J44.0 Chronic obstructive pulmonary disease with (acute) lower respiratory infection; E87.1 Hypo-osmolality and hyponatremia; F33.9 Major depressive disorder, recurrent, unspecified; I11.0 Hypertensive heart disease with heart failure; I50.9 Heart failure, unspecified; E11.65 Type 2 diabetes mellitus with hyperglycemia; E83.42 Hypomagnesemia; E53.8 Deficiency of other specified B group vitamins; D53.9 Nutritional anemia, unspecified; K44.9 Diaphragmatic hernia without obstruction or gangrene; F41.1 Generalized anxiety disorder; T38.0X5A Adverse effect of glucocorticoids and synthetic analogues, initial encounter; Z88.2 Allergy status to sulfonamides; Z88.5 Allergy status to narcotic agent; Z79.899 Other long term (current) drug therapy; Z90.49 Acquired absence of other specified parts of digestive tract; Z98.84 Bariatric surgery status; Z82.3 Family history of stroke; Z82.49 Family history of ischemic heart disease and other diseases of the circulatory system; Y92.89 Other specified places as the place of occurrence of the external cause; Z99.81 Dependence on supplemental oxygen